=== PATIENT | female | born 1960 | race Caucasian/White ===

== ENCOUNTER → 2019-01-20 08:46 | Outpatient (CLI) | payer BC, SELFPAY ==
--- NOTE | 2019-01-20 08:48 | AS_ITS ---
Renal Arterial Duplex Indications: 405.91 Unspecified renovascular hypertension. IMPRESSIONS 1. Less than 60% stenosis involving the right renal artery 2. Less than 60% stenosis involving the left renal artery 3. Cholelithiasis. History: Risk factors: Hypertension. Diabetes mellitus. Complete renal arterial duplex. Duplex scan and Doppler flow study including spectral analysis, color and rubin scale imaging. Height: Height: 160cm. Height: 63in. Weight: Weight: 88.5kg. Weight: 194.6lb. Body mass index: BMI: 34.5kg/m^2. Body surface area: BSA: 2.02m^2. Location: Vascular laboratory. Patient status: Outpatient. Tables: Arterial flow: + +--------+--------+ Location V sys V ed + +--------+--------+ Right renal - proximal 244cm/s 44.8cm/s + +--------+--------+ Right renal - mid 171cm/s 52.1cm/s + +--------+--------+ Right renal - distal 198cm/s 52.1cm/s + +--------+--------+ Left renal - proximal 175cm/s 44.4cm/s + +--------+--------+ Left renal - mid 184cm/s 24.7cm/s + +--------+--------+ Left renal - distal 122cm/s 33cm/s + +--------+--------+ Right renal-origin 235cm/s 48.9cm/s + +--------+--------+ Left renal-origin 171cm/s 43.3cm/s + +--------+--------+ Aorta-prox 96.4cm/s -------- + +--------+--------+ Renal anatomy: + +-----+-----+ Left Right + +-----+-----+ Long axis 9.6cm 9.4cm + +-----+-----+ Short axis 7.4cm 6.4cm + +-----+-----+ Cortical thickness 2cm 1.5cm + +-----+-----+ Velocity ratios: + +-----+ V sys + +-----+ Right renal/aortic 2.5 + +-----+ Left renal/aortic 1.9 + +-----+ (Report amended ) Electronically signed by: Theodore Gerardo [id number]
== END ==
PROVIDERS: PCP Emergency Medicine; Visit Provider Emergency Medicine
DX: I70.1 Atherosclerosis of renal artery (principal)
CPT/HCPCS: 93976

== ENCOUNTER → 2019-02-24 07:58 | Outpatient (CLI) | payer BC, SELFPAY ==
[2019-02-24 08:00] LABS: MANUAL DIFFERENTIAL MANUAL DIFFERENTIAL (MANUAL DIFF)
[2019-02-24 08:39] LABS: Basophils # 0.1 K/mm3 (0-0.2); Basophils % 0.8 % (0.1-2.0); Eosinophils # 0.1 K/mm3 (0.0-0.4); Eosinophils % 1.3 % (0.1-12.0); Hemoglobin 11.7 g/dL (12.2-16.2); Lymphocytes # 2.3 K/mm3 (0.7-4.5); Lymphocytes % 32.2 % (10-50); Mean Corpuscular HGB Conc 31.6 g/dL (31.8-35.4); Mean Corpuscular Hemoglobin 27.4 pg (27.0-31.2); Mean Corpuscular Volume 86.8 fl (81-99); Monocytes # 0.2 K/mm3 (0.1-1.0); Monocytes % 3.2 % (1.7-9.3); Neutrophils # 4.5 K/mm3 (1.8-7.8); Neutrophils % 62.5 % (37.0-80.0); Platelet Count 323 K/mm3 (142-424); Red Blood Count 4.27 M/mm3 (4.20-5.40); Red Cell Distribution Width 13.8 % (11.5-17.5); White Blood Count 7.3 K/mm3 (4.8-10.8)
[2019-02-24 08:52] LABS: Alanine Aminotransferase 17 U/L (12-78); Albumin Level 3.3 gm/dL (3.4-5.0); Albumin/Globulin Ratio 0.9 (1.1-1.8); Alkaline Phosphatase 83 U/L (46-116); Anion Gap 7.4 mEq/L (5-15); Aspartate Amino Transferase 7 U/L (15-37); Bilirubin,Total 0.4 mg/dL (0.2-1.0); Blood Urea Nitrogen 11 mg/dL (7-18); Carbon Dioxide 33 mmol/L (21.0-32.0); Chloride 93 mmol/L (98-107); Chol/HDL Ratio 6.3 (1-3.5); Cholesterol 344 mg/dL (140-200); Creatinine,Serum 0.99 mg/dL (0.55-1.02); Estimated Glomerular Filt Rate 57 ml/min (>60); GFR (African American) 69 ML/MIN (>60); Globulin 3.8 gm/dl (1.3-3.2); Glucose 96 mg/dL (74-106); HDL Cholesterol 55 mg/dL (29-89); LDL Cholesterol 255 mg/dL (0-130); Potassium 4.4 mmoL/L (3.5-5.1); Sodium 129 mmol/L (136-145); T4 (Thyroxine) 10.8 ug/dl (4.7-13.3); Thyroid Stimulating Hormone 3.43 uIU/ml (0.358-3.740); Total Protein,Serum 7.1 gm/dL (6.4-8.2); Triglycerides 169 mg/dL (30-200); VLDL Cholesterol 34 mg/dL (0-40)
--- NOTE | 2019-02-24 09:01 | CT_ITS ---
CT angio abdomen CLINICAL INDICATION: ITS.REASON: hypertension, renal artery stenosis ORDERING PHYSICIAN: Anshul Pham MD PATIENT AGE: 58 years COMPARISON: None TECHNIQUE: Axial images obtained with sagittal and coronal reformats. All CT scans at the facility use one or more dose reduction, viz: automated exposure control, ma/kV adjustment per patient size (including targeted exams where dose is matched to indication, i.e. head), or iterative reconstruction technique. PROCEDURE: Oral Contrast: None IV Contrast: Yes . FINDINGS: Lower thorax: No acute finding There are calcifications involving the abdominal aorta and pelvic arteries without definite stenosis. However it should be noted the entire pelvis is not in the field of view. There is small calcification near the ostium of the right renal artery however there is no definite stenosis of the solitary right renal artery. There is a solitary left renal artery also without stenosis. The length of the left and right kidneys are 9.9 and 9.8 cm respectively. The celiac, SMA and MICHAEL arteries opacify normally. Liver is normal. There is layering of soft tissue density in the dependent portion of the gallbladder without pericholecystic fluid or biliary dilatation. Pancreas, spleen, and adrenal glands are normal. Renal nephrograms bilaterally are normal. There is incomplete fluid distention of the stomach for adequate evaluation. Visualized portions of the bowel appear normal. Appendix appears normal. There is no acute osseous process. Impression: Calcific atherosclerotic vascular disease without areas of stenosis. Specifically no renal artery stenosis. There are solitary renal arteries bilaterally. There is no evidence of renal size significant asymmetry. Gallbladder sludge or noncalcified gallstones without acute inflammation.
[2019-02-24 11:21] LABS: Hemoglobin A1C 6.2 % (0.0-7.0)
[2019-02-24 11:34] LABS: Eosinophils % 3 % (0-3); Lymphocytes % 27 % (10-50); Monocytes % 2 % (2-9); Neutrophils % 68 % (42-76); Total Cells Counted 100
[2019-02-24 11:35] LABS: RBC Morphology Normal
[2019-02-24 11:37] LABS: Platelet Estimate Normal
[2019-02-25 15:04] LABS: Vitamin D 25 Hydroxy 24.2 ng/mL (30.0-100.0)
[2019-02-25 15:05] LABS: Microalbumin, Urine 3.3 ug/mL (Not Estab.)
== END ==
PROVIDERS: Visit Provider Emergency Medicine
DX: E11.9 Type 2 diabetes mellitus without complications (principal); F41.9 Anxiety disorder, unspecified; I10 Essential (primary) hypertension; I70.1 Atherosclerosis of renal artery; Z79.84 Long term (current) use of oral hypoglycemic drugs
CPT/HCPCS: 74175; 80053; 80061; 82043; 82652; 83036; 84436; 84443; 85007; 85014; 85018; 85048; 85049; Q9967

== ENCOUNTER → 2019-11-01 08:33 | Outpatient (CLI) | payer BC, SELFPAY ==
--- NOTE | 2019-11-01 08:33 | MM_ITS ---
PROCEDURE: MM DIG SCREENING MAMM BI W/CAD Digital Breast Tomosynthesis Included CLINICAL INDICATION: screening COMPARISON: DIAGNOSTIC MAMMOGRAPHY (ANALOG) from 09/06/2001 DIAGNOSTIC MAMMOGRAPHY (ANALOG) from 03/09/2002 DMSB DIG MAMM-SCREEN CELSA from 10/25/2013 TECHNIQUE: Standard CC and MLO images and 3D Tomosynthesis was obtained. R2 CAD reviewed. FINDINGS: The breasts are of average density. A metallic posterior tactic biopsy clip is seen in retroareolar right breast. Numerous benign appearing nodules most consistent with lymph nodes project over both pectoral muscles and in the prepectoral regions of both breasts. Benign appearing calcifications are also seen bilaterally. Graft there is a bilobulated 5.5 millimeter nodular density in the medial right breast on the CC views perhaps best depicted on the tomosynthesis images . This is not confirmed with certainty on MLO views or an additional CC view. There is no other new findings suspicious for malignancy. IMPRESSION: BI-RAD Category: 0 Need Additional Imaging Evaluation Additional cone compression view of asymmetrical density in the medial right breast and ultrasound targeted to mammographic abnormality and 90 degree lateral to medial view right breast recommended. (A letter has been sent to the patient regarding results of the study.) Dictated by: Manuel Brody 11/01/2019 10:03 Electronically signed by Manuel Brody in [place] 11/01/2019 10:03
== END ==
PROVIDERS: PCP Emergency Medicine; Visit Provider Emergency Medicine
DX: Z12.31 Encounter for screening mammogram for malignant neoplasm of breast (principal)
CPT/HCPCS: 77063; 77067

== ENCOUNTER → 2019-11-10 14:35 | Outpatient (CLI) | payer BC, SELFPAY ==
--- NOTE | 2019-11-10 14:35 | US_ITS ---
PROCEDURE: MM DIG MAMM DX UNILAT RT CAD Digital Breast Tomosynthesis Included CLINICAL INDICATION: abnormal mamm Follow-up abnormal mammogram COMPARISON: DIAGNOSTIC MAMMOGRAPHY (ANALOG) from 03/09/2002 DMSB DIG MAMM-SCREEN CELSA from 10/25/2013 MM DIG SCREENING MAMM BI W/CAD from 11/01/2019 US BREAST RT COMPLETE from 11/10/2019 TECHNIQUE: Standard CC and MLO images and 3D Tomosynthesis was obtained. R2 CAD reviewed. Right breast ultrasound FINDINGS: Spot compression views right mL view and right breast ultrasound is performed. There is some faint nodularity noted in the medial aspect of the right breast. Margins are not well circumscribed and this may only be due to some asymmetric fibroglandular tissue. Benign-appearing calcifications are noted also in the medial aspect of right breast. There is some minimal nodularity noted in the inferior aspect of the right breast on the mL view nonspecific Right breast ultrasound: No cystic or solid lesion evident. No sonographic correlate that would correspond to the nodular opacity in the medial aspect of the right breast. IMPRESSION: Probably benign findings. Recommend six-month mammographic and sonographic follow-up BI-RAD Category: 3 Probably Benign Finding Short Term Follow-up FOLLOW-UP: 6M 6Month Follow-up (A letter has been sent to the patient regarding results of the study.) Dictated by: Theodore Gerardo MD 11/23/2019 09:32 Electronically signed by Theodore Gerardo MD in [facility] 11/23/2019 09:32
== END ==
PROVIDERS: PCP Emergency Medicine; Visit Provider Emergency Medicine
DX: R92.8 Other abnormal and inconclusive findings on diagnostic imaging of breast (principal)
CPT/HCPCS: 76641; 77061; 77065; G0279

== ENCOUNTER → 2020-02-17 08:37 | Outpatient (CLI) | payer BC, SELFPAY ==
[2020-02-17 08:54] LABS: Basophils # 0.1 K/mm3 (0-0.2); Basophils % 0.7 % (0.1-2.0); Eosinophils # 0.1 K/mm3 (0.0-0.4); Eosinophils % 1.6 % (0.1-12.0); Hematocrit 36.6 % (37.0-47.0); Hemoglobin 12.5 g/dL (12.2-16.2); Lymphocytes # 2.2 K/mm3 (0.7-4.5); Lymphocytes % 27.6 % (10-50); Mean Corpuscular HGB Conc 34.1 g/dL (31.8-35.4); Mean Corpuscular Hemoglobin 30.3 pg (27.0-31.2); Mean Corpuscular Volume 88.7 fl (81-99); Mean Platelet Volume 7.6 fl (7.4-10.4); Monocytes # 0.3 K/mm3 (0.1-1.0); Monocytes % 3.2 % (1.7-9.3); Neutrophils # 5.2 K/mm3 (1.8-7.8); Neutrophils % 66.9 % (37.0-80.0); Platelet Count 301 K/mm3 (142-424); Red Blood Count 4.13 M/mm3 (4.20-5.40); Red Cell Distribution Width 14.2 % (11.5-17.5); White Blood Count 7.8 K/mm3 (4.8-10.8)
[2020-02-17 09:25] LABS: Chloride 92 mmol/L (98-107); Sodium 132 mmol/L (136-145)
[2020-02-17 09:27] LABS: Alanine Aminotransferase 16 U/L (12-78); Aspartate Amino Transferase 26 U/L (14-36); Blood Urea Nitrogen 21 mg/dl (7-17); Estimated Glomerular Filt Rate 56 ml/min (>60); GFR (African American) 68 ML/MIN (>60)
[2020-02-17 09:28] LABS: Albumin/Globulin Ratio 1.3 (1.1-1.8); Alkaline Phosphatase 62 U/L (38-126); Bilirubin,Total 0.6 mg/dl (0.2-1.3); Calcium 9.4 mg/dl (8.4-10.2); Carbon Dioxide 31 mmol/L (22.0-30.0); Globulin 3.1 g/dL (1.3-3.2); Glucose 98 mg/dl (74-100); Total Protein,Serum 7.1 g/dl (6.3-8.2); Triglycerides 180 mg/dl (30-150); VLDL Cholesterol 36 mg/dL (0-40)
[2020-02-17 09:39] LABS: Direct LDL Cholesterol 243.26 mg/dL (100-129)
[2020-02-17 09:58] LABS: Thyroid Stimulating Hormone 2.15 uIU/mL (0.465-4.68)
[2020-02-17 10:36] LABS: Anion Gap 13.6 mEq/L (5-15); Potassium 4.6 mmoL/L (3.5-5.1)
[2020-02-17 10:39] LABS: HDL Cholesterol 67 mg/dl (40-60)
[2020-02-17 10:48] LABS: Chol/HDL Ratio 5.3 (1-3.5); Cholesterol 358 mg/dl (140-200)
[2020-02-17 11:56] LABS: Hemoglobin A1C 5.8 % (4.0-6.0)
[2020-02-23 12:32] LABS: 1,25 Dihydroxy Vitamin D 22 pg/mL (.); 1,25-Dihydroxy, Vitamin D-2 <10 pg/mL (.); 1,25-Dihydroxy, Vitamin D-3 22 pg/mL (.)
== END ==
PROVIDERS: Visit Provider Emergency Medicine
DX: E11.9 Type 2 diabetes mellitus without complications (principal); Z79.84 Long term (current) use of oral hypoglycemic drugs
CPT/HCPCS: 36415; 80053; 80061; 82652; 83036; 84436; 84443; 85025

== ENCOUNTER → 2020-02-22 14:34 | Outpatient (CLI) | payer BC, SELFPAY ==
[2020-02-22 14:56] LABS: Creatinine,Urine Random 72 mg/dL (Not Estab.)
== END ==
PROVIDERS: Visit Provider Emergency Medicine
DX: E11.9 Type 2 diabetes mellitus without complications (principal); Z79.84 Long term (current) use of oral hypoglycemic drugs
CPT/HCPCS: 82570

== ENCOUNTER → 2020-05-22 13:47 | Outpatient (CLI) | payer BC, SELFPAY ==
--- NOTE | 2020-05-22 13:48 | MM_ITS ---
PROCEDURE: MM DIG MAMM DX UNILAT RT CAD Digital Breast Tomosynthesis Included CLINICAL INDICATION: 6 mth f/u due May 2020 Evaluation of possible asymmetric glandular elements COMPARISON: MG DMSB DIG MAMM-SCREEN CELSA from 10/25/2013 MG MM DIG SCREENING MAMM BI W/CAD from 11/01/2019 MG MM DIG MAMM DX UNILAT RT CAD from 11/10/2019 TECHNIQUE: Standard CC and MLO images and 3D Tomosynthesis was obtained. R2 CAD reviewed. FINDINGS: The questionable area of increased density on the recent mammogram 11/01/2019 and 11/10/2019 is less prominent on the current study and has the appearance of minimal asymmetric glandular elements on a background of primarily fatty breast parenchyma. Review of kriill images shows no suspicious abnormality. Again noted is a biopsy clip outer quadrant . IMPRESSION: Essentially negative six-month follow-up exam the questionable asymmetric glandular elements are somewhat less prominent than on the previous study and there is no suspicious lesions seen BI-RAD Category: 2 Benign Finding(s) FOLLOW-UP: 6M 6Month Follow-up to return to normal yearly screening schedule (A letter has been sent to the patient regarding results of the study.) Dictated by: Dr. Jc Krishnamurthy MD 05/30/2020 08:31 Dr. Jc Krishnamurthy MD in [place] 05/30/2020 08:31
--- NOTE | 2020-05-22 13:48 | US_ITS ---
PROCEDURE: US BREAST RT COMPLETE CLINICAL INDICATION: 6 mth f/u due may 2020 COMPARISON: US US BREAST RT COMPLETE from 11/10/2019 FINDINGS: Scanning in the circumareolar region shows normal appearing rather homogeneous echogenicity most consistent with fatty type breast parenchyma. There is no suspicious cystic or solid lesions seen. There are 2 small normal appearing nodes in the axilla. IMPRESSION: Unremarkable six-month follow-up ultrasound and recommend the patient continue with yearly screening mammography Dictated by: Dr. Jc Krishnamurthy MD 05/30/2020 08:34 Dr. Jc Krishnamurthy MD in [place] 05/30/2020 08:34
== END ==
PROVIDERS: PCP Emergency Medicine; Visit Provider Emergency Medicine
DX: R92.8 Other abnormal and inconclusive findings on diagnostic imaging of breast (principal)
CPT/HCPCS: 76641; 77061; 77065; G0279

== ENCOUNTER → 2020-07-03 12:32 | Outpatient (CLI) | payer BC, SELFPAY ==
--- NOTE | 2020-07-03 12:33 | CA_ITS ---
APPROVED REPORT Fishing Worker: DYLAN Laterality: Bilateral Indications: dizziness, HTN, hyperlipidemia, vertigo, diabetes Risk Factors Hypertension: Hyperlipidemia Diabetes Doppler Spectral Velocity Analysis ECA (R) 126.20/15.40 cm/s ECA (L) 132.90/21.20 cm/s dICA (R) 83.10/26.20 cm/s dICA (L) 88.00/32.10 cm/s Tj (R) 68.70/16.10 cm/s Tj (L) 88.00/32.70 cm/s pICA (R) 59.70/18.00 cm/s pICA (L) 93.70/31.50 cm/s dCCA (R) 70.60/17.60 cm/s dCCA (L) 105.40/25.70 cm/s pCCA (R) 65.20/11.80 cm/s pCCA (L) 108.00/33.40 cm/s Vert (R) 60.60/17.20 cm/s Vert (L) 50.30/15.00 cm/s ICA/CCA 1.18 ICA/CCA 0.89 Findings Duplex evaluation demonstrates stenosis of the right proximal internal carotid artery <20% with PSV <140 cm/sec, EDV <100 cm/sec, and IC/CC Ratio <4.0.Duplex evaluation demonstrates stenosis of the left proximal internal carotid artery <20% with PSV <140 cm/sec, EDV <100 cm/sec, and IC/CC Ratio <4.0. Conclusion Duplex evaluation demonstrates stenosis of the right proximal internal carotid artery <20% with PSV <140 cm/sec, EDV <100 cm/sec, and IC/CC Ratio <4.0.Duplex evaluation demonstrates stenosis of the left proximal internal carotid artery <20% with PSV <140 cm/sec, EDV <100 cm/sec, and IC/CC Ratio <4.0. Electronically signed by : Theodore Gerardo MD 07/03/2020 18:09:45
== END ==
PROVIDERS: PCP Emergency Medicine; Visit Provider Emergency Medicine
DX: R42 Dizziness and giddiness (principal)
CPT/HCPCS: 93880

== ENCOUNTER → 2021-02-11 13:58 | Outpatient (CLI) | payer BC, SELFPAY ==
[2021-02-11 14:15] LABS: Alanine Aminotransferase 13 U/L (12-78); Albumin Level 4.5 g/dl (3.5-5.0); Albumin/Globulin Ratio 1.6 (1.1-1.8); Alkaline Phosphatase 98 U/L (38-126); Anion Gap 10.8 mEq/L (5-15); Aspartate Amino Transferase 27 U/L (14-36); Bilirubin,Total 0.9 mg/dl (0.2-1.3); Blood Urea Nitrogen 14 mg/dl (7-17); Calcium 9.9 mg/dl (8.4-10.2); Carbon Dioxide 32 mmol/L (22.0-30.0); Chloride 95 mmol/L (98-107); Cholesterol 295 mg/dl (140-200); Estimated Glomerular Filt Rate 50 ml/min (>60); GFR (African American) 61 ML/MIN (>60); Globulin 2.8 g/dL (1.3-3.2); Glucose 107 mg/dl (74-100); Potassium 4.8 mmoL/L (3.5-5.1); Sodium 133 mmol/L (136-145); Total Protein,Serum 7.3 g/dl (6.3-8.2); Triglycerides 101 mg/dl (30-150); VLDL Cholesterol 20 mg/dL (0-40)
[2021-02-11 14:26] LABS: Direct LDL Cholesterol 157.44 mg/dL (100-129)
[2021-02-11 14:27] LABS: Chol/HDL Ratio 2.6 (1-3.5); HDL Cholesterol 115 mg/dl (40-60)
[2021-02-11 14:28] LABS: Hemoglobin A1C 5.7 % (4.0-6.0)
[2021-02-11 14:29] LABS: Basophils # 0.1 K/mm3 (0-0.2); Basophils % 0.9 % (0.1-2.0); Eosinophils # 0.1 K/mm3 (0.0-0.4); Eosinophils % 1.7 % (0.1-12.0); Hematocrit 37.5 % (37.0-47.0); Hemoglobin 12.5 g/dL (12.2-16.2); Lymphocytes # 2.3 K/mm3 (0.7-4.5); Lymphocytes % 33.4 % (10-50); Mean Corpuscular HGB Conc 33.2 g/dL (31.8-35.4); Mean Corpuscular Hemoglobin 29.2 pg (27.0-31.2); Mean Corpuscular Volume 87.9 fl (81-99); Mean Platelet Volume 8.6 fl (7.4-10.4); Monocytes # 0.3 K/mm3 (0.1-1.0); Monocytes % 4.5 % (1.7-9.3); Neutrophils # 4.1 K/mm3 (1.8-7.8); Neutrophils % 59.4 % (37.0-80.0); Platelet Count 365 K/mm3 (142-424); Red Blood Count 4.27 M/mm3 (4.20-5.40); Red Cell Distribution Width 13.7 % (11.5-17.5)
[2021-02-11 14:32] LABS: 25-OH Vitamin D, Total 24.2 ng/mL (30-100); T4 (Thyroxine) 13.3 ug/dl (5.53-11.0)
[2021-02-11 14:46] LABS: Thyroid Stimulating Hormone 2.84 uIU/mL (0.465-4.68)
== END ==
PROVIDERS: Visit Provider Emergency Medicine
DX: E11.9 Type 2 diabetes mellitus without complications (principal); E78.5 Hyperlipidemia, unspecified; I10 Essential (primary) hypertension; E55.9 Vitamin D deficiency, unspecified; Z79.84 Long term (current) use of oral hypoglycemic drugs
CPT/HCPCS: 80053; 80061; 82306; 83036; 84436; 84443; 85025

== ENCOUNTER → 2022-01-31 13:12 | Outpatient (CLI) | payer BC, SELFPAY ==
[2022-01-31 12:56] LABS: Basophils # 0.1 K/mm3 (0-0.2); Basophils % 1.6 % (0.1-2.0); Eosinophils # 0.2 K/mm3 (0.0-0.4); Eosinophils % 1.8 % (0.1-12.0); Hematocrit 35.6 % (37.0-47.0); Hemoglobin 11.1 g/dL (12.2-16.2); Lymphocytes # 2.3 K/mm3 (0.7-4.5); Lymphocytes % 25.7 % (10-50); Mean Corpuscular HGB Conc 31.2 g/dL (31.8-35.4); Mean Corpuscular Hemoglobin 27.1 pg (27.0-31.2); Mean Corpuscular Volume 86.9 fl (81-99); Mean Platelet Volume 8.4 fl (7.4-10.4); Monocytes # 0.4 K/mm3 (0.1-1.0); Monocytes % 4.3 % (1.7-9.3); Neutrophils # 5.9 K/mm3 (1.8-7.8); Neutrophils % 66.6 % (37.0-80.0); Platelet Count 378 K/mm3 (142-424); Red Cell Distribution Width 16.1 % (11.5-17.5); White Blood Count 8.9 K/mm3 (4.8-10.8)
[2022-01-31 13:06] LABS: Chloride 92 mmol/L (98-107); Potassium 4.7 mmoL/L (3.5-5.1); Sodium 129 mmol/L (136-145)
[2022-01-31 13:09] LABS: Anion Gap 13.7 mEq/L (5-15); Blood Urea Nitrogen 12 mg/dl (7-17); Carbon Dioxide 28 mmol/L (22.0-30.0); Estimated Glomerular Filt Rate 56 ml/min (>60); GFR (African American) 68 ML/MIN (>60)
[2022-01-31 13:10] LABS: Calcium 9.6 mg/dl (8.4-10.2); Chol/HDL Ratio 2.8 (1-3.5); Cholesterol 307 mg/dl (140-200); Glucose 100 mg/dl (74-100); HDL Cholesterol 109 mg/dl (40-60); Triglycerides 83 mg/dl (30-150); VLDL Cholesterol 17 mg/dL (0-40)
[2022-01-31 13:26] LABS: 25-OH Vitamin D, Total 34.1 ng/mL (30-100)
[2022-01-31 13:27] LABS: Direct LDL Cholesterol 171.69 mg/dL (100-129)
[2022-01-31 13:33] LABS: Free T4 (Free Thyroxine) 1.46 ng/dl (0.78-2.19)
[2022-01-31 13:46] LABS: Thyroid Stimulating Hormone 1.64 uIU/mL (0.465-4.68)
== END ==
PROVIDERS: PCP Emergency Medicine; Visit Provider Emergency Medicine
DX: E11.9 Type 2 diabetes mellitus without complications (principal); E55.9 Vitamin D deficiency, unspecified; Z79.84 Long term (current) use of oral hypoglycemic drugs
CPT/HCPCS: 80048; 80061; 82306; 84439; 84443; 85025

== ENCOUNTER → 2022-05-02 15:54 | Outpatient (CLI) | payer BC, SELFPAY ==
[2022-05-02 15:04] LABS: Creatinine,Urine Random 27 mg/dL (Not Estab.); Microalbumin < 6.000 mg/L (0-16.7)
== END ==
PROVIDERS: PCP Emergency Medicine; Visit Provider Emergency Medicine
DX: E11.9 Type 2 diabetes mellitus without complications (principal); Z79.84 Long term (current) use of oral hypoglycemic drugs
CPT/HCPCS: 82043; 82570

== ENCOUNTER → 2022-08-15 08:12 | Outpatient (CLI) | payer BC, SELFPAY ==
--- NOTE | 2022-08-15 08:12 | US_ITS ---
FINAL REPORT CLINICAL HISTORY: gallstones FINDINGS: Sonographic images of the right upper quadrant were obtained. The pancreas is partially obscured. The liver has increased echogenicity consistent with fatty infiltration. There are numerous gallstones within the gallbladder. There is no evidence of biliary ductal dilatation.The common duct measures 2 mm. Limited images of the right kidney are unremarkable. IMPRESSION: Cholelithiasis. Fatty liver. Reviewed, Interpreted and Dictated by Colin Jamil III, MD Transcribed by Blanca Rose Authenticated and . [facility]
--- NOTE | 2022-08-15 08:12 | US_ITS ---
FINAL REPORT CLINICAL HISTORY: .low back pain FINDINGS: Transvaginal sonographic images of the pelvis were obtained. The uterus measures 5.1 x 3.7 x 2.5 cm. The endometrium measures 3, which is within normal limits. There is a small uterine fibroid measuring 5 mm. The right ovary measures 1.9 cm in length and left ovary measures 2.1 cm in length. Normal blood flow seen to the ovaries. There is no evidence of free fluid. IMPRESSION: Small uterine fibroid, otherwise unremarkable exam. Reviewed, Interpreted and Dictated by Colin Jamil III, MD Transcribed by Blanca Rose Authenticated and [facility]
== END ==
PROVIDERS: PCP Emergency Medicine; Visit Provider Emergency Medicine
DX: K80.20 Calculus of gallbladder without cholecystitis without obstruction (principal); R10.2 Pelvic and perineal pain; M54.50 Low back pain, unspecified
CPT/HCPCS: 76705; 76830

== ENCOUNTER → 2022-08-21 09:44 | Outpatient (CLI) | payer BC, SELFPAY ==
[2022-08-21 10:13] LABS: Basophils # 0.1 K/mm3 (0-0.2); Basophils % 0.8 % (0.1-2.0); Eosinophils # 0.2 K/mm3 (0.0-0.4); Eosinophils % 1.6 % (0.1-12.0); Hematocrit 32.4 % (37.0-47.0); Hemoglobin 10.2 g/dL (12.2-16.2); Lymphocytes # 2.7 K/mm3 (0.7-4.5); Lymphocytes % 25.5 % (10-50); Mean Corpuscular HGB Conc 31.4 g/dL (31.8-35.4); Mean Corpuscular Volume 82.9 fl (81-99); Mean Platelet Volume 7.4 fl (7.4-10.4); Monocytes # 0.4 K/mm3 (0.1-1.0); Monocytes % 3.7 % (1.7-9.3); Neutrophils # 7.1 K/mm3 (1.8-7.8); Neutrophils % 68.3 % (37.0-80.0); Platelet Count 353 K/mm3 (142-424); Red Blood Count 3.91 M/mm3 (4.20-5.40); Red Cell Distribution Width 16.2 % (11.5-17.5); White Blood Count 10.4 K/mm3 (4.8-10.8)
[2022-08-21 10:40] LABS: Chloride 97 mmol/L (98-107); Potassium 4.4 mmoL/L (3.5-5.1); Sodium 134 mmol/L (136-145)
[2022-08-21 10:43] LABS: Alanine Aminotransferase 18 U/L (12-78); Albumin Level 4.1 g/dl (3.5-5.0); Albumin/Globulin Ratio 1.5 (1.1-1.8); Alkaline Phosphatase 99 U/L (38-126); Anion Gap 12.4 mEq/L (5-15); Aspartate Amino Transferase 25 U/L (14-36); Bilirubin,Total 0.6 mg/dl (0.2-1.3); Blood Urea Nitrogen 21 mg/dl (7-17); Carbon Dioxide 29 mmol/L (22.0-30.0); Estimated Glomerular Filt Rate 50 ml/min (>60); GFR (African American) 61 ML/MIN (>60); Globulin 2.8 g/dL (1.3-3.2); Total Protein,Serum 6.9 g/dl (6.3-8.2)
[2022-08-21 10:44] LABS: Calcium 9.3 mg/dl (8.4-10.2); Glucose 110 mg/dl (74-100)
== END ==
PROVIDERS: PCP Emergency Medicine; Visit Provider Surgery
DX: Z01.812 Encounter for preprocedural laboratory examination (principal); K80.20 Calculus of gallbladder without cholecystitis without obstruction
CPT/HCPCS: 36415; 80053; 85025

== ENCOUNTER 2022-09-08 06:06 | Day surgery (SDC) | payer BC, SELFPAY ==
[2022-09-05 09:11] VITALS: BMI 38.0
[2022-09-08] VITALS (10 sets, daily range): BP systolic 110–148; BP diastolic 59–79; PULSE 61–71; RESP 16–18; TEMP 36.1–43; O2SAT 91–99
[2022-09-08 06:34] LABS: POC Glucose,Bedside 111 (70-110)
--- NOTE | 2022-09-08 07:20 | P.PN_ITS ---
[facility] Disclaimer: The information contained in this section may have been updated after the patient was seen, as this information can be updated by other users. Medical History Ankle fracture Anxiety Depression Gallstones GERD (gastroesophageal reflux disease) Hypertension Surgical History H/O breast biopsy H/O release of tendon History of ankle surgery Family History Other Breast cancer Family history of hypertension Family history of myocardial infarction Prostate cancer Social History Smoking Status: Former smoker alcohol intake: never substance use type: denies use current occupational status: retired Travel in the last 8 weeks: None household members: spouse housing: apartment [facility] Anesthesia Checklist Patient Identification Patient Identification: Arm Band Structural Data Admitted From: Home Planned Operative Procedure/s: Lap. palacios Consent for Planned Operative Procedure(s) Verified: Yes NPO Status Verified Time NPO: 00:00 Additional verifications Anesthesia Reactions: No Hx Blood Transfusions: No Blood Transfusion Reaction: No Airway Assessment C-Spine Mobility Assessed: Yes TMJ Mobility Assessed: Yes Dentition: Good Dentition Neurological Assessment Level of Consciousness: Awake Hx Seizures: No Numbness or tingling in extremities: No Anesthesia Plan Anesthesia Risk discussed: Yes Anesthesia Plan: Verified ASA Class: III Anesthesia Type: General
--- NOTE | 2022-09-08 09:01 | EXP.OP.NOTE ---
Date of procedure: 09/08/22 Pre-op Diagnosis:: Symptomatic gallstones Post-op Diagnosis:: Same Procedure performed:: Laparoscopic cholecystectomy Surgeon:: Colin Sosa MD OBJECT ORIENTED PROGRAMMER:: Jon Nguyen Anesthesia: GABRIELA Estimated blood loss (mL): 25 Clinical Note:: Patient presents for cholecystectomy. She is a pleasant 62-year-old female from [place] referred by Dr. Pham for gallbladder.? She states that for about 2 months she has had some right subcostal pain and discomfort she describes as a grumbling .? This does not seem to be related to eating.? Patient underwent gallbladder ultrasound which reveals cholelithiasis and fatty liver. She was seen as a surgical consultation in the office. Options were discussed with her. She wished to pursue cholecystectomy. Operative findings:: She had a somewhat distended gallbladder filled with numerous gallstones. Gallbladder was obscured with omental adhesions. Operative note:: Patient was taken to the operating room. She was given preoperative intravenous antibiotics. In the operating room she was placed in a supine position. General anesthesia was induced via endotracheal tube. Abdomen was prepped and draped in the standard surgical fashion. Subumbilical incision was made and while performing abdominal wall lift Veress needle was inserted. CO2 pneumoperitoneum was achieved to 15 mmHg. 11 mm optical trocar was inserted at the umbilicus. She was positioned in reverse Trendelenburg and left side down. A couple 5 mm trocars were inserted in the right upper abdomen. 10 mm trocar was inserted in the epigastrium. Liver was elevated. Gallbladder was identified. It was mostly obscured with omental adhesions. It was grasped retracted anteriorly at the only visible site of the gallbladder serosa. Omental adhesions were then taken down bluntly. Infundibulum/Pizarro's pouch of the gallbladder was retracted anterior laterally. Blunt dissection was carried out the neck of the gallbladder bluntly incising the visceral peritoneum. Cystic duct and cystic artery were identified. Cystic artery was somewhat looped over the top of the cystic duct. Cystic duct was isolated, multiply clipped, and sharply divided. Cystic artery was carefully coagulated with MANI ultrasonic harmonic patrizia and divided. Gallbladder was dissected free from the liver in a retrograde fashion using MANI ultrasonic harmonic patrizia. Gallbladder was placed within an Endo Catch retrieval device and removed from the peritoneal cavity via the umbilical trocar site which required some minor extension of the fascial incision for delivery. Gallbladder fossa was inspected for hemostasis which was assured. Some limited spot use of electrocautery was used on the gallbladder fossa to assure good hemostasis. The umbilical incision was partially closed using the laparoscopic needle close device with several valdovinos . However this did not appear to result in good fascial closure and attempt was made to close this laparoscopically with 0 Ethibond using the [place] suture passer which resulted in suboptimal closure. Therefore the fascia was ultimately closed with multiple interrupted 0 Ethibond sutures. This was done after removal of trocars and pneumoperitoneum evacuated. Local anesthetic was infiltrated. Skin incisions were closed with 4-0 Monocryl in a subcuticular fashion. Dermabond and dressings were applied. Condition: stable Disposition: PACU Complications:: None immediately apparent
--- NOTE | 2022-09-08 09:13 | P.PNANES_ITS ---
[facility] Anesthesia Record Part I Anesthesia Record I Intake, IV Amount: 1,200 Estimated blood loss (mL): 25 Urine output (mL): 0 Blood Pressure: 110/59 SaO2: 91 Pulse Rate: 68 Respiratory Rate: 17 Temperature: 99.8 F Patient is:: Drowsy and Oral/Nasal airway Stable to PACU at:: 09:11
--- NOTE | 2022-09-09 09:48 | EXP.ANES.II ---
[facility] Anesthesia Record Part II Anesthesia Record Part II Discharge Time: 09:21 Destination: [facility] PACU nurse assessment reviewed?: Yes Patient Condition:: Good Anesthesia Complications:: None Swallowing reflex intact?: Yes Cyanosis?: No Blood Pressure: 128/67 Pulse Rate: 68 Temperature: 98.2 F Mental Status: Alert & Oriented Pain level:: 0 Nausea and/or vomitting:: None Intake, IV Amount: 1,000
[2022-09-09 09:49] VITALS: BP 128/67; PULSE 68; TEMP 36.8
== END 2022-09-08 10:25 | disposition home or self-care (01) ==
PROVIDERS: PCP Emergency Medicine; Visit Provider Surgery
PROC: 0FT44ZZ Resection of Gallbladder, Percutaneous Endoscopic Approach (ICD-10-PCS; CPT 47562; principal; 2022-09-08 07:30)
DX: K80.10 Calculus of gallbladder with chronic cholecystitis without obstruction (principal); E11.9 Type 2 diabetes mellitus without complications; Z79.899 Other long term (current) drug therapy
CPT/HCPCS: 47562; 82962; 96374; J0131; J2405

== ENCOUNTER 2022-12-14 09:48 | Inpatient (IN) | payer BC, SELFPAY ==
[2022-12-14] VITALS (25 sets, daily range): BP systolic 63–146; BP diastolic 27–69; PULSE 68–80; RESP 13–22; TEMP 36.6–37; O2SAT 95–100; BMI 35.9; BMI 34.4
--- NOTE | 2022-12-14 10:21 | HMH.EDGENADL ---
Discharge Plan Disposition Patient Disposition: Admitted As Inpatient Clinical Impressions Clinical Impression: ADINA (acute kidney injury) Discharge ED Provider: Edmundo Krause General Adult HPI General Chief complaint: Nausea/Vomiting/Diarrhea Stated complaint: Diarrhea, vomiting Time Seen by Provider: 12/14/22 10:15 Mode of Arrival: Wheelchair Source of Information: Patient Limitations: No Limitations Description of Symptoms (Recalled from ER Triage Doc. by RN): pt to ed c/o n/v/d since thursday. pt reports abd tenderness from vomiting. pt denies any blood in her stool or emesis. pt reports cholecystectomy in sep. History of Present Illness HPI narrative: Patient is a 62-year-old female with a past medical history of recent cholecystectomy in September who presents with concern for nausea, vomiting, diarrhea. She says that since Thursday she has had a substantial amount of watery diarrhea. Says it does not have a foul smell. No recent use of antibiotics. She states that she is going to the bathroom numerous times a day and now has not had any urination in the last couple of days. She denies any hematochezia. She says that she does have some generalized abdominal pain. Denies any dysuria. No fever or chills. Related Data Home Medications Medication Instructions Recorded Confirmed amlodipine 2.5 mg tablet 2.5 mg PO DAILY High blood pressure 12/14/22 12/14/22 aripiprazole 5 mg tablet 5 mg PO DAILY Mood 12/14/22 12/14/22 bupropion HCl 75 mg tablet 75 mg PO AM Mood 12/14/22 12/14/22 enalapril maleate 20 mg tablet 20 mg PO DAILY High blood pressure 12/14/22 12/14/22 ezetimibe 10 mg tablet 10 mg PO DAILY Cholesterol 12/14/22 12/14/22 hydrochlorothiazide 12.5 mg tablet 12.5 mg PO DAILY Fluid 12/14/22 12/14/22 niacin 500 mg tablet 500 mg PO BID Supplement 12/14/22 12/14/22 polyethylene glycol 3350 17 17 g PO DAILY Constipation 12/14/22 12/14/22 gram/dose oral powder propranolol 60 mg capsule,24 60 mg PO DAILY High blood pressure 12/14/22 12/14/22 hr,extended release semaglutide 0.25 mg or 0.5 mg (2 0.5 mg SQ WEEKLY Diabetes 12/14/22 12/14/22 mg/1.5 mL) subcutaneous pen injector ([employer]) vilazodone 10 mg tablet 10 mg PO AM Mood 12/14/22 12/14/22 vilazodone 20 mg tablet 20 mg PO AM Mood 12/14/22 12/14/22 Allergies Allergy/AdvReac Type Severity Reaction Status Date / Time ampicillin Allergy Mild Hives Verified 10/31/22 08:39 ergotamine Allergy Mild hiv Verified 10/31/22 08:39 Ooqfbht-[id number]-ZyJ Reductase Allergy Mild Cramping Verified 10/31/22 08:39 Inhibitor of the [Dqubjgq-Gkr-Yfz Reductase Muscles Inhibitor] sumatriptan [From Imitrex] Allergy Mild Hives Verified 10/31/22 08:39 topiramate [From Topamax] Allergy Mild Hives Verified 10/31/22 08:39 fluconazole [From Diflucan] Allergy Verified 10/31/22 08:39 PFS PFS Disclaimer: The information contained in this section may have been updated after the patient was seen, as this information can be updated by other users. Medical History Ankle fracture Anxiety BMI 36.0-36.9,adult Depression Gallstones GERD (gastroesophageal reflux disease) Hypertension Obsessive compulsive disorder Surgical History H/O breast biopsy H/O release of tendon History of ankle surgery History of laparoscopic cholecystectomy Family History Other Breast cancer Family history of hypertension Family history of myocardial infarction Prostate cancer Social History (Updated 12/14/22 @ 15:58 by Reyna John RN) Smoking Status: Former smoker alcohol intake: never substance use type: denies use current occupational status: retired Travel in the last 8 weeks: None household members: spouse housing: apartment ROS Obtained: Yes All systems reviewed & no additional complaints except as
[2022-12-14 10:40] LABS: Basophils % 0.5 % (0.1-2.0); Eosinophils % 0.6 % (0.1-12.0); Hematocrit 40.4 % (37.0-47.0); Lymphocytes # 1.5 K/mm3 (0.7-4.5); Lymphocytes % 20.5 % (10-50); Mean Corpuscular HGB Conc 32.1 g/dL (31.8-35.4); Mean Corpuscular Hemoglobin 26.3 pg (27.0-31.2); Mean Corpuscular Volume 81.9 fl (81-99); Mean Platelet Volume 7.3 fl (7.4-10.4); Monocytes # 0.5 K/mm3 (0.1-1.0); Monocytes % 6.5 % (1.7-9.3); Neutrophils # 5.3 K/mm3 (1.8-7.8); Neutrophils % 71.9 % (37.0-80.0); Platelet Count 383 K/mm3 (142-424); Red Blood Count 4.93 M/mm3 (4.20-5.40); Red Cell Distribution Width 16.2 % (11.5-17.5); White Blood Count 7.4 K/mm3 (4.8-10.8)
[2022-12-14 10:43] LABS: Lipase 88 U/L (23-300)
[2022-12-14 10:44] LABS: Alanine Aminotransferase 38 U/L (12-78); Albumin Level 4.7 g/dl (3.5-5.0); Albumin/Globulin Ratio 1.3 (1.1-1.8); Alkaline Phosphatase 108 U/L (38-126); Anion Gap 27.8 mEq/L (5-15); Aspartate Amino Transferase 50 U/L (14-36); Bilirubin,Total 0.7 mg/dl (0.2-1.3); Blood Urea Nitrogen 38 mg/dl (7-17); Calcium 9.3 mg/dl (8.4-10.2); Carbon Dioxide 18 mmol/L (22.0-30.0); Chloride 85 mmol/L (98-107); Creatinine Clearance Estimated 16 mL/min (50-200); Estimated Glomerular Filt Rate 9 ml/min (>60); GFR (African American) 10 ML/MIN (>60); Globulin 3.7 g/dL (1.3-3.2); Glucose 117 mg/dl (74-100); Sodium 128 mmol/L (136-145); Total Protein,Serum 8.4 g/dl (6.3-8.2)
[2022-12-14 10:57] LABS: Potassium 2.8 mmoL/L (3.5-5.1)
--- NOTE | 2022-12-14 10:59 | PC.NURSE ---
rounded on pt no complaints at this time, at bedside
[2022-12-14 11:28] LABS: Coronavirus 19, PCR Not Detected (NotDetected); Influenza A, PCR Not Detected (NotDetected); Influenza B, PCR Not Detected (NotDetected)
[2022-12-14 11:36] LABS: Lactic Acid 1.1 mmol/L (0.7-2.1)
--- NOTE | 2022-12-14 11:43 | PC.NURSE ---
checked on pt nurse was at bedside talking with pt and family, at bedside
--- NOTE | 2022-12-14 12:57 | PC.NURSE ---
checked on pt gave her a water and a cup of coffee, at bs
--- NOTE | 2022-12-14 13:15 | PC.NURSE ---
pt c/o of right arm hurting, IV stopped, assessed, Iv infiltrated during k+ infusing, pharmacy notified, warm compresses recommended. Warm compresses applied, new IV started in left AC. aware
--- NOTE | 2022-12-14 13:19 | PC.NURSE ---
Report received from KEDAR Castañeda at bedside
--- NOTE | 2022-12-14 14:01 | PC.NURSE ---
rounded on pt no complaints at this time, at bs
[2022-12-14 14:03] LABS: Anion Gap 20.9 mEq/L (5-15); Blood Urea Nitrogen 36 mg/dl (7-17); Calcium 8.1 mg/dl (8.4-10.2); Carbon Dioxide 18 mmol/L (22.0-30.0); Chloride 92 mmol/L (98-107); Creatinine Clearance Estimated 19 mL/min (50-200); Estimated Glomerular Filt Rate 10 ml/min (>60); GFR (African American) 12 ML/MIN (>60); Glucose 90 mg/dl (74-100); Sodium 128 mmol/L (136-145)
[2022-12-14 14:05] LABS: Potassium 2.9 mmoL/L (3.5-5.1)
--- NOTE | 2022-12-14 14:40 | PC.NURSE ---
Patient resting with even, unlabored respirations. Equal chest rise and fall. Finishing 2nd KCL run. SPouse at bedside updated, and given water.
--- NOTE | 2022-12-14 14:44 | PC.NURSE ---
checked on pt no complaints at this time, at bedside
--- NOTE | 2022-12-14 14:48 | PC.NURSE ---
spoke with hospitalisxt for admission
--- NOTE | 2022-12-14 15:10 | PC.NURSE ---
Report called to [facility]
--- NOTE | 2022-12-14 15:27 | PC.NURSE ---
pt to med surg per wheelchair
--- NOTE | 2022-12-14 15:50 | EXP.HP ---
History of Present Illness *Admission Date: 12/14/22 *Reason for visit:: Diarrhea *History of present illness: This is a 62-year-old white female that presents to [facility] emergency department with concerns of nausea vomiting diarrhea since Thursday. She is accompanied by her Alexandre who assists with the history. Her past medical history significant for diabetes, hypertension, BMI 36 and depression. She reports that she was in her usual state of health until Thursday when she started experiencing nausea followed by several episodes of vomiting then diarrhea. She characterizes the diarrhea as watery and profuse with multiple episodes a day. She reports inability to keep p.o. down with identified fatigue and weakness over the last 24 hours. She denied unusual headaches, jaundice, hematemesis, melena or hematochezia. She reports some tenesmus but no crescendo abdominal pain. She denies dysuria, brown urine or flank pain. She has identified decreased urine output. She recalls no associated sick contacts or unusual food exposure. She reports no routine NSAID use [id number]. No history of chronic UTIs. No kidney stones. No recent antibiotics but does report a cholecystectomy in September 2022. In the ED her presenting blood pressure was 71/45 with stable heart rate and saturating appropriately on room air. Her CBC identified a normal white blood cell count and her electrolytes identified several derangements including hyponatremia hypokalemia bicarb 18 with elevated BUN and creatinine 5.1. Her lactic acid was normal and her lipase was normal. She reports that she is already feeling better with IV fluid resuscitation. Follow-up creatinine has decreased to 4.4. [facility] Medical History Ankle fracture Anxiety BMI 36.0-36.9,adult Depression Gallstones GERD (gastroesophageal reflux disease) Hypertension Obsessive compulsive disorder Surgical History H/O breast biopsy H/O release of tendon History of ankle surgery History of laparoscopic cholecystectomy Family History Other Breast cancer Family history of hypertension Family history of myocardial infarction Prostate cancer Social History (Updated 12/14/22 @ 19:29 by Ezekiel Mandujano MD) Smoking Status: Former smoker years smoked: 20 how long ago did patient quit smokin years alcohol intake: never substance use type: denies use current occupational status: retired Travel in the last 8 weeks: None household members: spouse housing: apartment Review of Systems Review of Systems Review of systems:: pertinent systems reviewed and negative unless documented below Constitutional Constitutional: Reports chills, Denies fever(s), Reports poor appetite, Reports lethargy and Reports weakness Eyes Eyes: Denies change in vision ENT Ears, Nose, Mouth, and Throat: Denies dysphagia *Cardiovascular Cardiovascular: Denies chest pain, Denies chest pain at rest, Denies dyspnea, Denies dyspnea on exertion, Reports lightheadedness and Denies palpitations *Respiratory Respiratory: Denies cough, Denies dyspnea, Denies dyspnea on exertion and Denies pain on inspiration *Gastrointestinal Gastrointestinal: Denies coffee ground emesis, Reports diarrhea, Denies dysphagia, Denies hematemesis, Denies melena, Reports nausea and Reports vomiting *Genitourinary Genitourinary: Denies dysuria *Musculoskeletal Musculoskeletal: Denies muscle cramps *Neurologic Neurologic: Reports weakness Endocrine Endocrine: Denies palpitations and Denies polyuria Hematologic/Lymphatic Hematologic/Lymphatic: Denies easy bruising Meds Home Medications and Allergies Home Medications Medication Instructions Recorded Confirmed Type amlodipine 2.5 mg tablet 2.5 mg PO DAILY High blood pressure 12/14/22 12/14/22 History
[2022-12-14 17:07] LABS: POC Glucose,Bedside 101 (70-110)
[2022-12-14 21:00] LABS: POC Glucose,Bedside 135 (70-110)
[2022-12-14 21:28] LABS: Chloride 89 mmol/L (98-107); Sodium 126 mmol/L (136-145)
[2022-12-14 21:31] LABS: Blood Urea Nitrogen 34 mg/dl (7-17); Creatinine Clearance Estimated 26 mL/min (50-200); Estimated Glomerular Filt Rate 16 ml/min (>60); GFR (African American) 19 ML/MIN (>60)
[2022-12-14 21:32] LABS: Anion Gap 16.4 mEq/L (5-15); Calcium 7.7 mg/dl (8.4-10.2); Carbon Dioxide 23 mmol/L (22.0-30.0); Glucose 120 mg/dl (74-100)
[2022-12-14 21:42] LABS: Potassium 2.4 mmoL/L (3.5-5.1)
--- NOTE | 2022-12-14 21:45 | PC.NURSE ---
. aware of patient's k from lab of 2.4.
[2022-12-15] VITALS (9 sets, daily range): BP systolic 92–116; BP diastolic 40–59; PULSE 60–84; RESP 16–18; TEMP 36.8–37.7; O2SAT 91–100; BMI 34.9
--- NOTE | 2022-12-15 | US_ITS ---
FINAL REPORT TECHNIQUE: Ultrasound images of the kidneys and bladder were obtained. CLINICAL HISTORY: ADINA FINDINGS: The right kidney measures 9.4 cm in length. It is normal in echogenicity. There is no hydronephrosis. The left kidney measures 8.8 cm in length. It is normal in echogenicity. There is no hydronephrosis. The urinary bladder is unremarkable. IMPRESSION: No hydronephrosis. Reviewed, Interpreted and Dictated by Colin Jamil III, MD Transcribed by Jeannie Cerrato Authenticated and [facility]
[2022-12-15 04:37] LABS: Microscopic, Urine URINE MICROSCOPIC (MICROSCOPIC)
--- NOTE | 2022-12-15 04:45 | PC.NURSE ---
Pt. had no issues over night and stayed till this am. Urine and stool samples sent this am.
[2022-12-15 04:49] LABS: Appearance,Urine CLEAR (Clear); Bilirubin,Urine Negative (Negative); Blood, Urine TRACE-L (Negative); Color,Urine YELLOW (Yellow); Glucose,Urine (UA) Negative (Negative); Ketones,Urine Negative (Negative); Leukocyte Esterase,Urine Negative (Negative); Nitrate,Urine Negative (Negative); Protein,Urine Negative (Negative); Urobilinogen,Urine 0.2 EU/dl (0.2)
[2022-12-15 04:59] LABS: Adenovirus F 40/41, stool Not Detected (NotDetected); Astrovirus Not Detected (NotDetected); Campylobacter Not Detected (NotDetected); Cryptosporidium Not Detected (NotDetected); Cyclospora Cayetanesis Not Detected (NotDetected); Entamoeba histolytica Not Detected (NotDetected); Enteroaggregative E coli Not Detected (NotDetected); Enterotoxigenic E coli Not Detected (NotDetected); Giardia lamblia Not Detected (NotDetected); Norovirus Not Detected (NotDetected); Plesimonas Shigalloides, PCR Not Detected (NotDetected); Salmonella, PCR Not Detected (NotDetected); Sapovirus Not Detected (NotDetected); Shiga-like toxin E coli Not Detected (NotDetected); Shigella Enterovasive E coli Not Detected (NotDetected); Vibrio Cholerae Not Detected (NotDetected); Vibrio, PCR Not Detected (NotDetected); Yersinia Entercolitica, PCR Not Detected (NotDetected)
[2022-12-15 05:07] LABS: Creatinine,Urine Random 59 mg/dL (Not Estab.)
[2022-12-15 05:11] LABS: POC Glucose,Bedside 89 (70-110)
[2022-12-15 05:12] LABS: Bacteria,Urine Trace /lpf; RBC,Urine Occasional #/hpf (0-3); WBC,Urine Occasional #/hpf (0-3)
[2022-12-15 06:38] LABS: Basophils % 0.3 % (0.1-2.0); Eosinophils # 0.2 K/mm3 (0.0-0.4); Eosinophils % 2.7 % (0.1-12.0); Hematocrit 30.4 % (37.0-47.0); Lymphocytes # 1.6 K/mm3 (0.7-4.5); Lymphocytes % 27.6 % (10-50); Mean Corpuscular Hemoglobin 26.9 pg (27.0-31.2); Mean Corpuscular Volume 81.6 fl (81-99); Mean Platelet Volume 7.3 fl (7.4-10.4); Monocytes # 0.4 K/mm3 (0.1-1.0); Monocytes % 6.1 % (1.7-9.3); Neutrophils # 3.6 K/mm3 (1.8-7.8); Neutrophils % 63.3 % (37.0-80.0); Platelet Count 237 K/mm3 (142-424); Red Blood Count 3.72 M/mm3 (4.20-5.40); Red Cell Distribution Width 16.2 % (11.5-17.5); White Blood Count 5.7 K/mm3 (4.8-10.8)
[2022-12-15 06:45] LABS: Anion Gap 15.1 mEq/L (5-15); Blood Urea Nitrogen 29 mg/dl (7-17); Calcium 7.7 mg/dl (8.4-10.2); Carbon Dioxide 24 mmol/L (22.0-30.0); Chloride 93 mmol/L (98-107); Creatinine Clearance Estimated 38 mL/min (50-200); Estimated Glomerular Filt Rate 24 ml/min (>60); GFR (African American) 29 ML/MIN (>60); Glucose 91 mg/dl (74-100); Magnesium 1.2 mg/dl (1.6-2.3); Potassium 3.1 mmoL/L (3.5-5.1); Sodium 129 mmol/L (136-145)
--- NOTE | 2022-12-15 07:10 | PC.NURSE ---
pt off the floor at this time for renal u/s.
--- NOTE | 2022-12-15 08:06 | HMH.PHAINT1 ---
Pharmacy Intervention Comments: HOME MEDICATIONS VERIFIED BY LIST FROM OUTSIDE PHARMACY.
[2022-12-15 10:52] LABS: Rotavirus A Detected (NotDetected)
[2022-12-15 10:54] LABS: Clostridium Difficile A/B, PCR Detected (NotDetected); Enteropathogenic E coli Detected (NotDetected)
[2022-12-15 12:20] LABS: POC Glucose,Bedside 120 (70-110)
--- NOTE | 2022-12-15 16:11 | PC.NURSE ---
pt alert and oriented. pt has been up ambulating around her room this shift. pt ls cta. abdomen soft, nontender, bs active. pt states her bowel movements have slowed down this shift. pt is contact precautions d/t cdiff, rotavirus, ecoli. at bedside.
--- NOTE | 2022-12-15 16:18 | EXP.ACUTE.PN ---
Subjective *Date: 12/15/22 *Time: 17:16 Interval history: Patient feeling better today, tolerated p.o. intake without any nausea or vomiting. Still having watery stools. No fever. No blood in her stool. No shortness of breath or chest pain. Medical Exam Vital signs and Labs for Last 24 Hours: Vital Signs Temp Pulse Pulse Resp BP Pulse Ox 12/15/22 15:53 98.4 F 73 18 109/52 L 100 12/15/22 08:00 60 12/15/22 11:10 99.9 F H 84 18 113/53 L 99 12/15/22 07:43 98.5 F 77 18 102/48 L 91 L 12/15/22 04:00 98.4 F 77 16 92/40 L 96 12/15/22 04:00 70 12/15/22 01:48 98 12/15/22 00:33 80 12/15/22 00:00 98.6 F 78 16 109/52 L 98 12/14/22 20:00 80 12/14/22 19:44 98.6 F 74 18 99/54 L 95 Intake and Output 12/15/22 12/15/22 12/15/22 07:59 15:59 23:59 Intake Total 1418 / 1778 360 / 1778 Output Total 300 / 300 0 / 300 Balance 1118 / 1478 360 / 1478 Intake: Intake, Oral Amount 240 / 600 360 / 600 Intake, Total IV Amount 1178 / 1178 0.9 % Sodium Chloride 1000ML 1, 600 / 600 000 ml @ 100 mls/hr IV .Q10H DOMI Rx#:[id number] Sodium Bicarbonate 150 meq In 578 / 578 Dextrose 5 % in Water 1,000 ml @ 191.667 mls/hr IV .Q6H DOMI Rx #:[id number] Output: Output, Urine Amount 300 / 300 0 / 300 Other: Number of Unmeasured Voids 1 1 Number of Bowel Movements 1 1 Weight 89.471 kg 89.41 kg Patient Weight 12/15/22 23:59 Weight 89.41 kg Laboratory Results - last 24 hr 12/14/22 04:30: Urine Color Yellow, Urine Appearance Clear, Urine pH 6.0, Ur Specific [place] 1.010, Urine Protein Negative, Urine Glucose (UA) Negative, Urine Ketones Negative, Urine Blood Trace-l, Urine Nitrate Negative, Urine Bilirubin Negative, Urine Urobilinogen 0.2, Ur Leukocyte Esterase Negative, Urine RBC Occasional, Urine WBC Occasional, Ur Squamous Epith Cells 3-5, Urine Bacteria Trace 12/14/22 04:30: Urine Creatinine 59 12/14/22 05:00: Stl Aeromonas (PCR) Not detected, Stl C. cayetanensis PCR Not detected, Stool Rotavirus (PCR) Detected A, Stl Adenov F 40/41 PCR Not detected, Stool Astrovirus (PCR) Not detected, Stool Campylobacter PCR Not detected, Stl C.difficile Tox PCR Detected A, Stool Cryptosporidium PCR Not detected, Stl E.coli Shiga Tox PCR Not detected, Stool E coli O157 PCR Not detected, Stl Enterotoxigenic E PCR Not detected, Stool EPEC (PCR) Detected A, Stool EAEC (PCR) Not detected, Stl E. histolytica PCR Not detected, Stool Giardia Lamblia PCR Not detected, Stool Salmonella PCR Not detected, Stool Sapovirus (PCR) Not detected, Stl P. shigelloides PCR Not detected, Stl Shigella/EIEC PCR Not detected, St Y.enterocolitica PCR Not detected, Stool Vibrio (PCR) Not detected, Stl Vibrio cholerae PCR Not detected, Stl Norovirus GI/GII PCR Not detected 12/14/22 16:50: POC Glucose 101 12/14/22 20:52: POC Glucose 135 H 12/14/22 21:10: Sodium 126 L, Potassium 2.4 L*, Chloride 89 L, Carbon Dioxide 23, Anion Gap 16.4 H, BUN 34 H, Creatinine 3.00 H D, Estimated Creat Clear 26, Estimated GFR 16 L*, Est GFR ( Amer) 19 L* D, Glucose 120 H D, Calcium 7.7 L 12/15/22 05:04: POC Glucose 89 12/15/22 05:58: WBC 5.7, RBC 3.72 L, Hct 30.4 L, MCV 81.6, MCH 26.9 L, MCHC 33.0, RDW 16.2, Plt Count 237 D, MPV 7.3 L, Neut % (Auto) 63.3, Lymph % (Auto) 27.6, Vigo % (Auto) 6.1, Eos % (Auto) 2.7, Baso % (Auto) 0.3, Neut # (Auto) 3.6, Lymph # (Auto) 1.6, Vigo # (Auto) 0.4, Eos # (Auto) 0.2, Baso # (Auto) 0.0 12/15/22 05:58: Sodium 129 L, Potassium 3.1 L D, Chloride 93 L, Carbon Dioxide 24, Anion Gap 15.1 H, BUN 29 H, Creatinine 2.10 H D, Estimated Creat Clear 38, Estimated GFR 24 L, Est GFR ( Amer) 29 L D, Glucose 91 D, Calcium 7.7 L, Magnesium 1.2 L 12/15/22 12:09: POC Glucose 120 H I & O for Labs for Last 24 Hours: Intake & Output 12/12/22 12/13/22 12/14/22 12/15/22 23:59 23:59 23:59 23:59 Intake Total 240 / 240 1778 / 1778 Output Total 200
[2022-12-15 16:37] LABS: POC Glucose,Bedside 99 (70-110)
[2022-12-15 19:22] LABS: Anion Gap 14.2 mEq/L (5-15); Blood Urea Nitrogen 18 mg/dl (7-17); Calcium 8.1 mg/dl (8.4-10.2); Carbon Dioxide 28 mmol/L (22.0-30.0); Chloride 93 mmol/L (98-107); Creatinine Clearance Estimated 62 mL/min (50-200); Estimated Glomerular Filt Rate 41 ml/min (>60); GFR (African American) 50 ML/MIN (>60); Glucose 98 mg/dl (74-100); Magnesium 1.8 mg/dl (1.6-2.3); Potassium 3.2 mmoL/L (3.5-5.1); Sodium 132 mmol/L (136-145)
[2022-12-16] VITALS: BP 106/59; PULSE 77; RESP 18; TEMP 37.1; O2SAT 97
[2022-12-16 00:16] LABS: POC Glucose,Bedside 103 (70-110)
[2022-12-16 04:00] VITALS: BP 115/64; PULSE 81; RESP 18; TEMP 37.4; O2SAT 97; BMI 35.4
[2022-12-16 06:23] LABS: POC Glucose,Bedside 91 (70-110)
[2022-12-16 07:07] LABS: Alanine Aminotransferase 27 U/L (12-78); Albumin Level 3.3 g/dl (3.5-5.0); Albumin/Globulin Ratio 1.2 (1.1-1.8); Alkaline Phosphatase 89 U/L (38-126); Anion Gap 14.2 mEq/L (5-15); Aspartate Amino Transferase 34 U/L (14-36); Bilirubin,Total 0.3 mg/dl (0.2-1.3); Blood Urea Nitrogen 14 mg/dl (7-17); Calcium 8.5 mg/dl (8.4-10.2); Carbon Dioxide 27 mmol/L (22.0-30.0); Chloride 99 mmol/L (98-107); Creatinine Clearance Estimated 74 mL/min (50-200); Estimated Glomerular Filt Rate 50 ml/min (>60); GFR (African American) 61 ML/MIN (>60); Globulin 2.7 g/dL (1.3-3.2); Glucose 102 mg/dl (74-100); Magnesium 1.8 mg/dl (1.6-2.3); Potassium 4.2 mmoL/L (3.5-5.1); Sodium 136 mmol/L (136-145)
--- NOTE | 2022-12-16 07:09 | ECG_ITS ---
APPROVED REPORT Exam: Resting ECG HR:74 bpm ECG Measurements Heart Rate 74 AXES MS 200 P 65 QRSd 76 QRS 48 QT 362 T 64 QTc 390 Conclusion SINUS RHYTHM LOW QRS VOLTAGE IN PRECORDIAL LEADS [QRS DEFLECTION < 1.0 mV IN CHEST LEADS] BORDERLINE ECG UNCONFIRMED REPORT Electronically signed by : Sukumar Ortiz MD 12/16/2022 20:09:53
--- NOTE | 2022-12-16 07:23 | EXP.DC.SUM ---
General Admission date:: 12/14/22 Discharge date: 12/16/22 HPI HPI HPI: This is a 62-year-old white female that presents to [facility] emergency department with concerns of nausea vomiting diarrhea since Thursday. She is accompanied by her Alexandre who assists with the history. Her past medical history significant for diabetes, hypertension, BMI 36 and depression. She reports that she was in her usual state of health until Thursday when she started experiencing nausea followed by several episodes of vomiting then diarrhea. She characterizes the diarrhea as watery and profuse with multiple episodes a day. She reports inability to keep p.o. down with identified fatigue and weakness over the last 24 hours. She denied unusual headaches, jaundice, hematemesis, melena or hematochezia. She reports some tenesmus but no crescendo abdominal pain. She denies dysuria, brown urine or flank pain. She has identified decreased urine output. She recalls no associated sick contacts or unusual food exposure. She reports no routine NSAID use [id number]. No history of chronic UTIs. No kidney stones. No recent antibiotics but does report a cholecystectomy in September 2022. In the ED her presenting blood pressure was 71/45 with stable heart rate and saturating appropriately on room air. Her CBC identified a normal white blood cell count and her electrolytes identified several derangements including hyponatremia hypokalemia bicarb 18 with elevated BUN and creatinine 5.1. Her lactic acid was normal and her lipase was normal. She reports that she is already feeling better with IV fluid resuscitation. Follow-up creatinine has decreased to 4.4. Hospital Course Hospital Course Hospital Course: This is a 62-year-old female with no prior history of kidney disease that presents to the ED with nausea vomiting and diarrhea and found to have a creatinine of 5.1 it is improving with fluid resuscitation.? Creatinine improved to 1.1 on day of discharge. Tolerating oral vancomycin for her C. difficile. No bowel movement overnight. Overall feeling better. Hemodynamically stable. Stable for discharge home to complete oral antibiotic course. Problems addressed as follows: C. difficile colitis Diarrhea Presented with copious watery diarrhea. Stool panel positive for C. difficile, rotavirus, 2 forms of E. coli. Initiated on oral vancomycin 125 mg 4 times daily. Plan to complete 10-day course. Initiated on a fiber supplement during admission. Recommend holding her bowel regimen on discharge. Tolerating p.o. intake for over 24 hours prior to discharge home. Acute kidney injury Prerenal due to dehydration from diarrhea along with medication effect from her diuretic and MANI inhibitor. Improved to 1.1 on day of discharge, down from 5.1 on admission.? Renal ultrasound with no gross abnormalities identified. Normal echogenicity and size. No hydronephrosis. Hyponatremia Hypokalemia Hypocalcemia Significant electrolyte disturbances related to her vomiting and diarrhea.? Replaced as needed.? Received IV magnesium, calcium, potassium during admission. Electrolytes normalized by day of discharge. Needs repeat labs in 1 to 2 weeks to monitor for stability of electrolytes. We will hold diuretic at discharge to decrease risk for any further electrolyte disturbances. No supplementation required at discharge. Diabetes Routine blood sugar monitoring during admission. Held her Ozempic during admission. Treated with insulin therapy during admission. Glucose remained stable. Defer further management to PCP. Hypertension Routine blood pressure monitoring during hospitalization. Blood pressure remained well controlled below 130/80. Held her blood pressure meds during admission. Recommend resuming her amlodipine and then her enalapril if monitoring at home consistently shows 140/90. We will hold diuretic at this time. Did continue her beta-tomi during hos
[2022-12-16 07:33] VITALS: BP 97/56; PULSE 75; RESP 18; TEMP 36.7; O2SAT 100
[2022-12-16 08:00] VITALS: PULSE 75; O2SAT 100
[2022-12-16 09:14] LABS: Sodium, Urine <20 mmol/L (Not Estab.)
--- NOTE | 2022-12-16 10:12 | HMH.PHAINT1 ---
Pharmacy Intervention Comments: DISCHARGE MEDICATION COUNSELING COMPLETED. PATIENT WAS TOLD TO START VANCOMYCIN SOLUTION. PATIENT WAS TOLD OF POSSIBLE SIDE EFFECT OF NAUSEA OR DIARRHEA AND WAS INSTRUCTED TO TAKE WITH FOOD IF THIS OCCURS. NURSE WILL GET THE VANCOMYCIN LIQUID FROM THE [facility] AND GIVE TO PATIENT RIGHT BEFORE THEY LEAVE. PATIENT WAS TOLD TO HOLD AMLODIPINE AND ENALAPRIL. WILL MONITOR BLOOD PRESSURE AT HOME AND RESUME THESE MEDS IF IT REACHES >140/90. WILL FOLLOW UP WITH PCP. PATIENT WILL STOP TAKING HYDROCHLOROTHIAZIDE AND MIRALAX. PATIENT DID NOT HAVE ANY QUESTIONS ABOUT THESE CHANGES OR HER CONTINUED MEDICATIONS.
[2022-12-16 14:21] LABS: Calcium, Ionized 4.6 mg/dL (4.5-5.6)
--- NOTE | 2022-12-17 12:32 | CARE MANAGER ---
Contacted patient related to hospital discharge. She states she is feeling much better. She is aware of her medication changes and her follow up appointment. Denies questions or concerns. KEDAR Bowman
== END 2022-12-16 10:25 | disposition home or self-care (01) | DRG 372 ==
LOC: ER 09:59 → 2ND 14:58
PROVIDERS: Internal Medicine Adolescent Medicine; Admitting Provider Family Medicine; Emergency Provider Student in an Organized Health Care Education/Training Program; PCP Emergency Medicine; Visit Provider Family Medicine
DX: A04.72 Enterocolitis due to Clostridium difficile, not specified as recurrent (principal); E87.1 Hypo-osmolality and hyponatremia; N17.9 Acute kidney failure, unspecified; I10 Essential (primary) hypertension; K80.20 Calculus of gallbladder without cholecystitis without obstruction; F32.9 Major depressive disorder, single episode, unspecified; E83.51 Hypocalcemia; E83.42 Hypomagnesemia; E87.6 Hypokalemia; E66.9 Obesity, unspecified; Z68.35 Body mass index [BMI] 35.0-35.9, adult; Z87.891 Personal history of nicotine dependence; Z79.899 Other long term (current) drug therapy; E11.9 Type 2 diabetes mellitus without complications; Z79.85 Long-term (current) use of injectable non-insulin antidiabetic drugs
CPT/HCPCS: 36415; 76770; 80048; 80053; 81001; 82330; 82570; 82962; 83605; 83690; 83735; 84300; 85025; 87507; 87636; 93005; 99285; C9803; J2405; J3475; U0003; U0005

== ENCOUNTER → 2023-07-28 07:34 | Outpatient (CLI) | payer MEDICARE, SELFPAY ==
--- NOTE | 2023-07-28 07:34 | MM_ITS ---
PROCEDURE INFORMATION: Exam: MG Bilateral Screening 3D Mammography Exam date and time: 07/28/2023 7:55 AM Age: 63 years old Clinical indication: Screening mammogram TECHNIQUE: Imaging protocol: Bilateral Screening tomosynthesis and 2D mammography including computer-aided detection (CAD) when performed. COMPARISON: 1. MG MM DIG MAMM DX UNILAT RT CAD 05/22/2020 1:48 PM 2. MG MM DIG MAMM DX UNILAT RT CAD 11/10/2019 2:44 PM 3. MG MM DIG SCREENING MAMM BI W/CAD 11/01/2019 8:44 AM 4. MG DMSB DIG MAMM-SCREEN CELSA 10/25/2013 3:54 PM FINDINGS: MAMMOGRAPHY: Breast composition: There are scattered areas of fibroglandular density. Mass: None. Architectural distortion: No new or suspicious architectural distortion. Calcifications: No new or suspicious calcifications are present Asymmetric density: No new or suspicious asymmetric density is present Skin thickening: None. Axillary adenopathy: None. IMPRESSION: No mammographic evidence of malignancy. Recommend annual screening mammography unless otherwise clinically indicated. ASSESSMENT: BI-RADS category 1: Negative
== END ==
PROVIDERS: Visit Provider Family Medicine
DX: Z12.31 Encounter for screening mammogram for malignant neoplasm of breast (principal)
CPT/HCPCS: 77063; 77067

== ENCOUNTER 2023-11-26 13:22 | Outpatient (CLI) | payer MEDICARE, SELFPAY ==
[2023-11-26 18:50] LABS: Basophils # 0.1 K/mm3 (0-0.2); Basophils % 0.7 % (0.1-2.0); Eosinophils # 0.2 K/mm3 (0.0-0.4); Eosinophils % 2.3 % (0.1-12.0); Hemoglobin 13.3 g/dL (12.2-16.2); Lymphocytes # 2.8 K/mm3 (0.7-4.5); Lymphocytes % 28.8 % (10-50); Mean Corpuscular Volume 99.8 fl (81-99); Monocytes # 0.4 K/mm3 (0.1-1.0); Monocytes % 3.8 % (1.7-9.3); Neutrophils # 6.3 K/mm3 (1.8-7.8); Neutrophils % 64.4 % (37.0-80.0); Platelet Count 303 K/mm3 (142-424); Red Cell Distribution Width 14.6 % (11.5-17.5); White Blood Count 9.8 K/mm3 (4.8-10.8)
[2023-11-26 18:51] LABS: Alanine Aminotransferase 29 U/L (12-78); Albumin Level 3.9 g/dl (3.5-5.0); Albumin/Globulin Ratio 1.3 (1.1-1.8); Alkaline Phosphatase 119 U/L (38-126); Anion Gap 10.9 mEq/L (5-15); Aspartate Amino Transferase 34 U/L (14-36); Bilirubin,Total 0.5 mg/dl (0.2-1.3); Blood Urea Nitrogen 16 mg/dl (7-17); Calcium 9.6 mg/dl (8.4-10.2); Carbon Dioxide 29 mmol/L (22.0-30.0); Chloride 102 mmol/L (98-107); Chol/HDL Ratio 5.4 (1-3.5); Cholesterol 293 mg/dl (140-200); Estimated Glomerular Filt Rate 50 ml/min (>60); GFR (African American) 60 ML/MIN (>60); Glucose 91 mg/dl (74-100); HDL Cholesterol 54 mg/dl (40-60); Potassium 4.9 mmoL/L (3.5-5.1); Sodium 137 mmol/L (136-145); Total Protein,Serum 6.9 g/dl (6.3-8.2); Triglycerides 122 mg/dl (30-150); VLDL Cholesterol 24 mg/dL (0-40)
[2023-11-26 18:53] LABS: Creatinine,Urine Random 24 mg/dL (Not Estab.)
[2023-11-26 18:58] LABS: Microalbumin < 6.000 mg/L (0-16.7)
[2023-11-26 19:03] LABS: Direct LDL Cholesterol 184.89 mg/dL (100-129)
[2023-11-26 19:22] LABS: Thyroid Stimulating Hormone 2.26 uIU/mL (0.465-4.68)
[2023-11-26 19:23] LABS: Hemoglobin A1C 5.6 % (4.0-6.0)
[2023-11-26 19:41] LABS: Vitamin B12 777 pg/mL (239-931)
== END 2023-11-26 23:59 | disposition home or self-care (01) ==
LOC: LAB.DROPOF 11-27 13:24
PROVIDERS: PCP Internal Medicine; Visit Provider Internal Medicine
DX: E11.9 Type 2 diabetes mellitus without complications (principal); R53.83 Other fatigue; E78.5 Hyperlipidemia, unspecified; E55.9 Vitamin D deficiency, unspecified; E53.8 Deficiency of other specified B group vitamins; E05.90 Thyrotoxicosis, unspecified without thyrotoxic crisis or storm; Z79.899 Other long term (current) drug therapy
CPT/HCPCS: 80053; 80061; 82043; 82306; 82570; 82607; 83036; 84443; 85025

== ENCOUNTER 2024-01-13 15:33 | Outpatient (CLI) | payer MEDICARE, SELFPAY ==
[2024-01-13 16:58] LABS: Alanine Aminotransferase 21 U/L (12-78); Albumin Level 3.9 g/dl (3.5-5.0); Albumin/Globulin Ratio 1.3 (1.1-1.8); Alkaline Phosphatase 93 U/L (38-126); Anion Gap 12.3 mEq/L (5-15); Aspartate Amino Transferase 27 U/L (14-36); Bilirubin,Total 0.5 mg/dl (0.2-1.3); Blood Urea Nitrogen 16 mg/dl (7-17); Calcium 9.8 mg/dl (8.4-10.2); Carbon Dioxide 28 mmol/L (22.0-30.0); Chloride 102 mmol/L (98-107); Estimated Glomerular Filt Rate 45 ml/min (>60); GFR (African American) 55 ML/MIN (>60); Glucose 93 mg/dl (74-100); Potassium 4.3 mmoL/L (3.5-5.1); Sodium 138 mmol/L (136-145); Total Protein,Serum 6.9 g/dl (6.3-8.2)
[2024-01-13 18:05] LABS: Folate 8.42 ng/mL
== END 2024-01-13 23:59 | disposition home or self-care (01) ==
LOC: LAB 15:34
PROVIDERS: PCP Internal Medicine; Visit Provider Obstetrics & Gynecology
DX: N18.31 Chronic kidney disease, stage 3a (principal); D64.9 Anemia, unspecified
CPT/HCPCS: 36415; 80053; 82746

== ENCOUNTER 2024-02-03 09:22 | Outpatient (CLI) | payer MEDICARE, SELFPAY ==
[2024-02-03 20:47] LABS: Chol/HDL Ratio 4.2 (1-3.5); Cholesterol 264 mg/dl (140-200); HDL Cholesterol 63 mg/dl (40-60); Triglycerides 128 mg/dl (30-150); VLDL Cholesterol 26 mg/dL (0-40)
[2024-02-03 20:58] LABS: Direct LDL Cholesterol 150.42 mg/dL (100-129)
[2024-02-03 21:16] LABS: Hemoglobin A1C 5.6 % (4.0-6.0)
== END 2024-02-03 23:59 | disposition home or self-care (01) ==
LOC: LAB.DROPOF 02-04 09:23
PROVIDERS: PCP Internal Medicine; Visit Provider Internal Medicine
DX: E78.5 Hyperlipidemia, unspecified (principal); E11.9 Type 2 diabetes mellitus without complications
CPT/HCPCS: 80061; 83036

== ENCOUNTER 2024-06-20 08:24 | Outpatient (CLI) | payer MEDICARE, SELFPAY ==
--- NOTE | 2024-06-20 08:24 | CT_ITS ---
APPROVED REPORT Voice Pathologist: CLINICAL INDICATION Risk stratification TECHNIQUE Image Acquisition: A 128 slice MDCT scanner (NetClaritya View) was used for data acquisition. A noncontrast coronary calcium scan was performed. A CT attenuation threshold of 130 Hounsfield units (HU) was used for the detection of calcium in contiguous voxels of 1 sq mm in area to be counted as individual lesions. A tube voltage of 120 KVp was used. The patient received no medications prior to the coronary calcium CT. Image Reconstruction Transaxial images were reconstructed at 0.67 mm slide thickness. Data was reviewed interactively on an advanced workstation capable of 2 and 3-dimensional displays in all conventional reconstruction formats, including multiplanar reformations, maximum intensity projections, curved multiplanar reformations, and volume rendered reconstructions. When applicable, selected routine images describing the relevant coronary anatomy and pathology were saved and sent to PACS. Complications None Technical Quality Overall image quality was good. Total DLP (Dose-Length Product) is 125.9 mGy-cm. The reported value represents the total of one or more individual components during the CT acquisition of this date and at this time, and as such, the same value may appear in more than one CT report depending on the interpreting/reporting physicians. COMPARISON None FINDINGS CT Coronary Calcium Scoring LMA (Left Main Artery) = 35 LAD (Left Anterior Descending) = 204 LCX (Left Coronary Circumflex) = 149 RCA (Right Coronary Artery) = 178 Total Calcium Score = 566 using the AJ-130 method. There is also calcification in the aortic valve and the ascending and descending thoracic aorta. IMPRESSION -Coronary artery calcification is present. -Total Calcium Score (Agatston Score) = 566 using the AJ-130 method. -The observed calcium score of 566 is at 96th percentile for subjects of the same age, sex, and race/ethnicity. The interpretation of the calcium heart score is based on the following continuum*: 0 = no calcified plaque detected (risk of coronary artery disease is very low ??? less than 5%) 1-10 = calcium detected in extremely minimal levels (risk of coronary diseases is still low ??? less than 10%) 11-100 = mild levels of plaque detected with certainty (mild or minimal narrowing of heart arteries is likely) 101-400 = definite,at least moderate levels of plaque detected (relatively high risk of a heart attack within 3-5 years) >401-999 = extensive levels of plaque detected (high risk of heart attack, high levels of vascular disease are present, high likelihood of at least one significant coronary narrowing) *The calcium heart score quantifies the burden of coronary calcification/plaque in the coronary arteries. The calcium heart score does not evaluate the presence or the burden of non-calcified (i.e. soft) plaque. The coronary and cardiac findings of this Coronary Calcium CT were reviewed, reported, and signed by Luis Membreno MD ([employer]). Conclusion Electronically signed by : Stephanie Membreno MD 06/21/2024 12:15:56
--- NOTE | 2024-06-20 09:06 | CA_ITS ---
APPROVED REPORT EXAM: Comprehensive 2D, Doppler, and color-flow Echocardiogram Operations Scheduler: Margie Orr RT(R) Ht: 5 ft 3 in Wt: 197lbs BSA: 1.92 BP: 140/57 mmHg Indications: dizziness, ex smoker, HTN, DM, hyperlipidemia, CKD III, GERD. 2D Dimensions Left Atrium 3.90 cm F: 2.7 - 3.8 LVEF (Harris's) 56.60 % F: 54 - 74 LVOT 1.99 cm (M/F) 1.5-2.5 LV Volume 75.80 mL F: 46 - 106 LV Volume Index 39.5 mL/m2 F: 29 - 61 LA Volume 22.90 mL LA Volume Index 11.93 mL/m2 (M/F) 16-34 EF AP4 56.30 % EF AP2 57.5 % EF BP 56.6 % GL Strain -19.1 % M-Mode Dimensions RVDd 3.49 cm (0.9-2.6) LVDd 2.85 cm (3.5-5.7) Ao Diam 2.56 cm (2.0-3.7) LVDs 2.13 cm (3.5-5.7) IVSd 1.06 cm (0.6-1.1) PWd 1.02 cm (0.6-1.1) EF (Teich) 51.80% FS 25.30% EDV (Teich) 30.90 mL TAPSE 2.00 (<1.7) ESV (Teich) 14.90 mL LV Diastology E Decel Time 204 (160-240 msec) E/A Ratio 0.8 MED E' 6.7 (>= 7 cm/sec) E'/MED E' Ratio 14.46 (<= 14) LAT E' 7.4 (>= 10 cm/sec) E/LAT E' Ratio 13.09 (<= 14) Mitral Valve MV E Max Tunde. 97.0 (40-130 cm/s) MV A Velocity 127.0 (40-130 cm/s) E/A Ratio 0.76 MV Decel. Time 204 (160-240 ms) Left Ventricle The left ventricle is normal size. The left ventricular systolic function is normal. The left ventricular ejection fraction is within the normal range. There is increased LV wall thickness. There is normal LV segmental wall motion. The left ventricular diastolic function is normal. LVEF is 55%. Right Ventricle The right ventricle is normal size. The right ventricular systolic function is normal. Atria The left atrium size is normal. The right atrium size is normal. Color Doppler demonstrates possible presence of interatrial shunt. Aortic Valve The aortic valve leaflets are mildly thickened. There is no aortic valvular stenosis. No aortic regurgitation is present. Mitral Valve The mitral valve leaflets are mildly thickened. No evidence of mitral valve stenosis. Trace mitral regurgitation. Tricuspid Valve Tricuspid valve is grossly normal in structure and function. Trace tricuspid regurgitation. There is insufficient TR jet to estimate RVSP. Pulmonic Valve The pulmonary valve is normal in structure. Trace pulmonic regurgitation. Great Vessels The aortic root is normal in size. IVC is normal in size and collapses >50% with inspiration. Pericardium There is no pericardial effusion. Other Information Study Quality: Fair Conclusion Normal biventricular size and systolic function. No significant valvular stenosis or regurgitation. Color Doppler demonstrates possible presence of interatrial shunt. In the setting of normal RV size and function, no further evaluation is recommended for the possible interatrial shunt. Clinical correlation is suggested. Electronically signed by : Stephanie Membreno MD 06/28/2024 11:27:26
== END 2024-06-20 23:59 | disposition home or self-care (01) ==
PROVIDERS: PCP Internal Medicine; Visit Provider Physician Assistant
DX: R06.02 Shortness of breath (principal); R42 Dizziness and giddiness; I10 Essential (primary) hypertension; R94.31 Abnormal electrocardiogram [ECG] [EKG]
CPT/HCPCS: 75571; 93306

== ENCOUNTER 2024-08-04 10:30 | Outpatient (CLI) | payer MEDICARE, SELFPAY ==
[2024-08-04 18:41] LABS: Basophils # 0.1 K/mm3 (0-0.2); Basophils % 0.7 % (0.1-2.0); Eosinophils # 0.2 K/mm3 (0.0-0.4); Lymphocytes # 2.8 K/mm3 (0.7-4.5); Lymphocytes % 30.5 % (10-50); Mean Corpuscular Hemoglobin 29.3 pg (27.0-31.2); Mean Corpuscular Volume 94.6 fl (81-99); Mean Platelet Volume 10.1 fl (7.4-10.4); Monocytes # 0.5 K/mm3 (0.1-1.0); Monocytes % 5.4 % (1.7-9.3); Neutrophils # 5.6 K/mm3 (1.8-7.8); Neutrophils % 61.1 % (37.0-80.0); Platelet Count 319 K/mm3 (142-424); Red Blood Count 4.44 M/mm3 (4.20-5.40); Red Cell Distribution Width 12.5 % (11.5-17.5); White Blood Count 9.1 K/mm3 (4.8-10.8)
[2024-08-04 18:53] LABS: Hemoglobin A1C 5.5 % (4.0-6.0)
[2024-08-04 19:13] LABS: Chol/HDL Ratio 2.8 (1-3.5); Cholesterol 182 mg/dl (140-200); HDL Cholesterol 65 mg/dl (40-60); Triglycerides 125 mg/dl (30-150); VLDL Cholesterol 25 mg/dL (0-40)
[2024-08-04 19:24] LABS: Direct LDL Cholesterol 107.33 mg/dL (100-129)
[2024-08-04 19:42] LABS: Thyroid Stimulating Hormone 2.15 uIU/mL (0.465-4.68)
== END 2024-08-04 23:59 | disposition home or self-care (01) ==
LOC: LAB.DROPOF 08-06 08:30
PROVIDERS: PCP Internal Medicine; Visit Provider Internal Medicine
DX: E78.5 Hyperlipidemia, unspecified (principal); E11.69 Type 2 diabetes mellitus with other specified complication; Z79.85 Long-term (current) use of injectable non-insulin antidiabetic drugs; E66.9 Obesity, unspecified; D64.9 Anemia, unspecified; Z68.35 Body mass index [BMI] 35.0-35.9, adult
CPT/HCPCS: 80061; 83036; 84443; 85025

== ENCOUNTER 2024-08-17 07:42 | Outpatient (RCR) | payer MEDICARE, SELFPAY ==
--- NOTE | 2024-08-17 14:47 | HMH.PTOPEV ---
PT Outpatient Evaluation Rehab PT Outpatient Evaluation Start: 08/17/24 14:20 Freq: Status: Active Protocol: Document 08/17/24 14:20 PHORNE (Rec: 08/17/24 14:46 PHORNE [id number]) E-signed By Smith Mosher, PT Outpatient Therapy Subjective History Subjective History This is the initial PT eval for Liliana Wyatt, 64 yowf who presents with c/o chronic vertigo symptoms that have worsened acutely over the past several weeks. She reports, My sister was diagnosed with Meniere's disease and I saw an ENT that told me I have it too. She reports background vertigo symptoms that happen intermittently and can last for 30-45 minutes. She also reports more recently having acute onset bouts of vertigo in certain positions that last for 30-45 seconds. She reports PMH of frequent ear infections on the R side, R side hearing loss and tinnitus , HTN controlled with meds, DM , CRI, cataract surgery performed several years ago, and an unspecified heart murmur. New diagnosis of cancer in past 12 No months? Chief Complaint Other Symptoms Relieved By Activity Symptom Description Intermittent,Activity Dependent Balance Eval Hx of Falls Hx Falls No Gait/Posture Asssessment General Gait Observation No Deviations/Normal Nystagmus Nystagmus Presence Positional Nystagmus Description Right Direction,Geotropic, Right Torsion,Latency - Immediate Oculomotor Gaze Oculomotor Gaze Nml: Vergence Smooth Pursuit Saccades Cover/Uncover Cross Cover Abn: VOR Cancellation Miscellaneous Dx PT Eval Objective Objective Placedo Hallpike testing reveals upbeating and R torsional nystagmus during R side testing which denotes likely R side BPPV in PSC. Uwlozw-Ygk-Vmuf: normal on L side, absent hearing on R side Rotational and vertical movements with gaze stabilization result in increased vertigo symptoms with VOR cancellation testing. Miscellaneous Goals Short Term Goals 4 wks 1.) Pt will have No episodes of positional vertigo for 4 weeks consistently. Residential Goals 8 wks 1.) Pt will improve dynamic balance in standing to Good. 2.) Pt will have decreased episodes of vertigo with VOR cancellation activity to minimal. Outpatient Therapy Assessment Impairments Problems/Impairmments Impaired Walking,Impaired Standing,Impaired Driving, Impaired Recreational Activities,Impaired Balance, Impaired Self Care/Self Management Prognosis Comment Skilled therapy is indicated to decrease vertigo symptoms, improve dynamic and static balance in standing in order to return pt to PLOF. Clinical Impression Consistent with Diagnosis Yes Consistent with also: Additional details: H81.11 BPPV R ear Outpatient Therapy Plan of Care Frequency Times per week 1-2 Duration Number of Weeks 8 Addendums This patient is a candidate for social No or vocational rehab? Patient/Guardian verbally acknowledges Yes understanding of treatment program and consents to further treatment? Patient/Guardian verbally acknowledges Yes understanding of diagnosis, prognosis and goals for treatment? Eval Complexity PT Charges 03062 - High Complexity Shoulder/Elbow Eval Shoulder Objective Measurements Elbow Objective Measurements PHYSICIAN CERTIFICATION: I certify the specified therapy services for Liliana Wyatt are required, authorized, and reviewed every 30 days.
== END 2024-08-17 23:59 | disposition home or self-care (01) ==
LOC: PT 07:42
PROVIDERS: Visit Provider Internal Medicine
DX: H81.09 Meniere's disease, unspecified ear (principal)
CPT/HCPCS: 97163

== ENCOUNTER 2024-08-17 09:23 | Outpatient (CLI) | payer MEDICARE, SELFPAY ==
--- NOTE | 2024-08-17 09:23 | MM_ITS ---
PROCEDURE INFORMATION: Exam: MG Bilateral Screening 3D Mammography Exam date and time: 08/17/2024 9:14 AM Age: 64 years old Clinical indication: Screening examination. Her mother had breast cancer in her late 60s and her sister had breast cancer in her 40s. TECHNIQUE: Imaging protocol: Bilateral Screening tomosynthesis and 2D mammography including computer-aided detection (CAD) when performed. COMPARISON: 1. MG MM DIG SCREENING MAMM BI W/CAD 07/28/2023 7:55 AM 2. MG MM DIG MAMM DX UNILAT RT CAD 05/22/2020 1:48 PM 3. MG MM DIG MAMM DX UNILAT RT CAD 11/10/2019 2:44 PM 4. MG MM DIG SCREENING MAMM BI W/CAD 11/01/2019 8:44 AM FINDINGS: MAMMOGRAPHY: Breast composition: There are scattered areas of fibroglandular density. Mass: No suspicious mass. Architectural distortion: None. Calcifications: No suspicious calcifications. Asymmetric density: None. Skin thickening: None. Axillary adenopathy: None. IMPRESSION: No mammographic evidence of malignancy. Annual screening is recommended unless otherwise clinically indicated. ASSESSMENT: BI-RADS Category 1: Negative.
== END 2024-08-17 23:59 | disposition home or self-care (01) ==
LOC: RAD 09:23
PROVIDERS: PCP Internal Medicine; Visit Provider Internal Medicine
DX: Z12.31 Encounter for screening mammogram for malignant neoplasm of breast (principal)
CPT/HCPCS: 77063; 77067

== ENCOUNTER 2024-08-31 08:59 | Outpatient (CLI) | payer MEDICARE, SELFPAY ==
[2024-08-31 18:25] LABS: Alanine Aminotransferase 33 U/L (12-78); Albumin/Globulin Ratio 1.5 (1.1-1.8); Alkaline Phosphatase 117 U/L (38-126); Anion Gap 12.8 mEq/L (5-15); Aspartate Amino Transferase 36 U/L (14-36); Bilirubin,Total 0.3 mg/dl (0.2-1.3); Blood Urea Nitrogen 16 mg/dl (7-17); Calcium 9.7 mg/dl (8.4-10.2); Carbon Dioxide 30 mmol/L (22.0-30.0); Chloride 100 mmol/L (98-107); Estimated Glomerular Filt Rate 50 ml/min (>60); GFR (African American) 60 ML/MIN (>60); Globulin 2.6 g/dL (1.3-3.2); Glucose 93 mg/dl (74-100); Potassium 4.8 mmoL/L (3.5-5.1); Sodium 138 mmol/L (136-145); Total Protein,Serum 6.6 g/dl (6.3-8.2)
== END 2024-08-31 23:59 | disposition home or self-care (01) ==
LOC: LAB.DROPOF 09-01 08:59
PROVIDERS: PCP Internal Medicine; Visit Provider Internal Medicine
DX: E11.69 Type 2 diabetes mellitus with other specified complication (principal); E66.9 Obesity, unspecified; Z68.35 Body mass index [BMI] 35.0-35.9, adult
CPT/HCPCS: 80053

== ENCOUNTER 2024-10-27 08:43 | Outpatient (CLI) | payer MEDICARE, SELFPAY ==
[2024-10-27 20:52] LABS: Alanine Aminotransferase 25 U/L (12-78); Albumin Level 4.2 g/dl (3.5-5.0); Albumin/Globulin Ratio 1.6 (1.1-1.8); Alkaline Phosphatase 106 U/L (38-126); Anion Gap 14.1 mEq/L (5-15); Aspartate Amino Transferase 29 U/L (14-36); Bilirubin,Total 0.6 mg/dl (0.2-1.3); Blood Urea Nitrogen 15 mg/dl (7-17); Carbon Dioxide 30 mmol/L (22.0-30.0); Chloride 100 mmol/L (98-107); Estimated Glomerular Filt Rate 50 ml/min (>60); GFR (African American) 60 ML/MIN (>60); Globulin 2.6 g/dL (1.3-3.2); Glucose 84 mg/dl (74-100); Potassium 5.1 mmoL/L (3.5-5.1); Sodium 139 mmol/L (136-145); Total Protein,Serum 6.8 g/dl (6.3-8.2)
[2024-10-27 21:06] LABS: Creatinine,Urine Random 16 mg/dL (Not Estab.)
[2024-10-27 21:07] LABS: Microalbumin < 6.000 mg/L (0-16.7)
== END 2024-10-27 23:59 | disposition home or self-care (01) ==
LOC: LAB.DROPOF 10-28 11:08
PROVIDERS: PCP Family Medicine; Visit Provider Family Medicine
DX: E11.69 Type 2 diabetes mellitus with other specified complication (principal); E66.9 Obesity, unspecified
CPT/HCPCS: 80053; 82043; 82570

== ENCOUNTER 2025-01-10 07:05 | Outpatient (CLI) | payer MEDICARE, SELFPAY ==
--- OUTSIDE RECORDS SUMMARY | 2025-01-10 07:08 | XMS_ITS | Clinical Summary ---
Author Organization Healthcare Address [address] [place] [address] Care Team Providers Care Fermenting Cellars Supervisor Name Role Phone Anshul Pham MD Primary Care Provider [phone] Allergies Active Allergy Reactions Criticality Noted Date Comments Acyclovir Unknown - Patient st ates they do not know rxn details Low 05/10/2014 Ampicillin Unknown - Patient st ates they do not know rxn details,Rash Low 05/10/2014 Ergotamine Unknown - Patient st ates they do not know rxn details,Hives Medium 05/10/2014 Fluconazole Hives Medium 10/31/2022 Statins Other - please docum ent in the comment field Low 10/31/2022 Sulfa Drugs Unknown - Patient st ates they do not know rxn details Low 05/10/2014 Sumatriptan Hives Medium 10/31/2022 Topiramate Unknown - Patient st ates they do not know rxn details,Hives Medium 06/28/2014 Medications Flaxseed-June Prim-Bilberry 250-125-10 MG capsule 4 Active amLODIPine (Norvasc) 2.5 MG tablet 1 Active ARIPiprazole (Abilify) 5 MG tablet 1 Active Aspirin Buf,CaCarb-MgC arb-MgO, 81 MG tablet 9 Active buPROPion (Wellbutrin) 75 MG tablet take once tablet daily 8 Active enalapril (Vasotec) 20 MG tablet TAKE 2 TABLET QD 9 Active ergocalciferol (Vitamin D-2) 1.25 MG (43975 UT) capsule 9 Active ezetimibe (Zetia) 10 MG tablet 1 Active hydroCHLOROthi azide (HYDRODiuril) 12.5 MG tablet 1 Active metFORMIN (Glucophage) 500 MG tablet 1 Active niacin 500 MG tablet 1 Active omeprazole OTC (PriLOSEC OTC) 20 MG EC tablet TAKE 1 TABLET DAILY. 5 Active propranolol LA (Inderal LA) 60 MG 24 hr capsule 9 Active Viibryd 20 MG tablet 1 Active Viibryd 10 MG tablet 1 Active polyvinyl alcohol-povido ne PF (HYPOTears) 1.4-0.6 % ophthalmic solution Administer 1-2 drops into both eyes if needed for wound care. Active Ozempic, 0.25 or 0.5 MG/DOSE, 2 MG/3ML solution pen-injector INJECT 0.5 MG SUBCUTANEOUSLY ONCE A WEEK 4 Active atorvastatin (Lipitor) 20 MG tablet 5 Active Active Problems Problem Noted Date Diagnosed Date Abdominal pain 09/16/2023 Pelvic pain 09/16/2023 Anxiety 09/16/2023 C. 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 Hypertension 07/08/2023 Type 2 diabetes mellitus without complications 1 09/08/2022 Obsessive-compulsive disorder, unspecified 06/03 Enterocolitis due to Clostri dium difficile, not specified as recurrent 12/30/2022 GERD (gastroesophageal reflux disease) 3 Obesity 12/30/2022 ADINA (acute kidney injury) 12/16/2022 Calculus of gallbladder with out cholecystitis without obstruction 12/16/2022 Hypo-osmolality and hyponatremia 12/16/2022 Hypocalcemia 12/16/2022 Hypomagnesemia 12/16/2022 Diarrhea 12/15/2022 Other acute kidney failure 12/15/2022 Other bacterial infections of unspecified site 0 12/15/2022 Diabetes mellitus type 2 without retinopathy 06/2019 Cataract, nuclear sclerotic, left eye 12/17/2018 Combined form of senile cataract of right eye Age-related nuclear cataract, bilateral 11/23/19 Macular vitelliform lesion 11/22/2018 Pathologic myopia, 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 Intractable chronic migraine without aura and with status migrainosus 06/21/2015 Migraines 05/08/2014 Encounters Date Type Department Care Team Description 10/14/2024 9:30 AM EDT Office Visit [facility] [address] [place] [phone] Alexandre Ramos MD Diabetes mellitus type 2 without retinopathy (CMS/HCC) (Primary Dx); Pseudophakia of both eyes 10/14/2024 Travel from Last 3 Months Family History Medical History Relation Name Comments Cancer Brother 1 Jerardo Lopez Other cancer Brother 1 Jerardo Loepz Cancer Brother 2 Alexandre Lopez Cancer Brother 3 Anshul Lopez Cancer Father WK Edmundo Cardiac disorder Father WK Edmundo Hyperlipidemia Father WK Ed[place] Hypertension Father WK Edmundo Other cancer Father WK [place] Stroke Father WK [place] Cancer Mother Carolin B Ed[place]undo Hypertension Mother Carolin B Ed[place]undo Obesity Mother Carolin B Ed[place]undo Other cancer Mother Carol[place] B [place] Stroke Mother Carol[place] B [place] Diabetes Other 1 Meniere's disease Other 2 Cancer Sister Annabelle Mcclure Other cancer Sister Annabelle Mcclure Relation Name Status Comments Brother 1 Jerardo Edmundo Brother 2 Alexandre Lopez Alive Brother 3 Anshul Lopez Alive Father WK [place] Mother Carolin B Ed[place]undo Other 1 Other 2 Sister Annabelle Mcclure Social History Tobacco Use Types Packs/Day Years Used Date Smoking Tobacco: Former Cigarettes 1 15 Q uit: 09/12/2004 Passive Smoke Exposure: Past Smokeless Tobacco: Never Comments:haven't smoked in 2 0 years Alcohol Use Standard Drinks/Week Comments No 0 (1 standard drink = 0.6 oz pur e alcohol) Comments Unknown Sex and Gender Information Value Date Recorded Sex Assigned at Not on file Legal Sex Female 7:40 PM EDT Gender Identity Not on file Sexual Orientation Not on file Last Filed Vital Signs Vital Sign Reading Time Taken Comments Blood Pressure 137/83 10/23/2017 8:47 AM EDT Pulse 60 10/23/2017 8:47 AM EDT Temperature 36.7 C (98 F) 10/23/2017 8:47 AM EDT Respiratory Rate - - Oxygen Saturation - - Inhaled Oxygen Concentration - - Weight 96.2 kg (212 lb 1.3 oz) 10/23/2017 8:47 A M EDT Height 160 cm (5' 3 ) 10/23/2017 8:47 AM EDT Body Mass Index 37.57 10/23/2017 8:47 AM EDT Plan of Treatment Upcoming Encounters Date Type Department Care Team (Late st Contact Info) Description 10/27/2025 9:30 AM EDT Office Visit [facility] [address] [place] [address] Alexandre Ramos MD [address] [phone] Health Maintenance Due Date Last Done Comments Dental Oral Exam 1960 Dental X-Ray: Full Mouth 1958 [facility]-Bone Density Scan 1958 [facility]-Depression Screening 1960 [facility]-Diabetes: Hemoglobin A1C 1958 [facility]-Hepatitis C Screening 1958 [facility]-Medicare Annual Wellness (AWV) 1958 [facility]-Infant/Child/Adol SDOH Screenings 1958 Diabetes: Dental Exam 1968 [facility]- SDOH Screenings 1976 [facility]-Adult SDOH Screenings 1976 [facility]-DTaP,Tdap,and Td Vaccines (1 - Tdap) 1977 Dental Prophylaxis 03/04/1994 09/03/1993 Dental X-Ray: Bitewings 07/05/1994 07/04/1993 CT Colonography 2003 Colonoscopy 2003 FIT-DNA 2003 FIT 2003 FOBT 2003 Sigmoidoscopy 2003 [facility]-Colorectal Cancer Screening 2003 [facility]-Breast Cancer Screening 2008 [facility]-Zoster Vaccines (1 of 2) 2008 [facility]-Pneumococcal Vaccine: 50+ Years (2 of 2 - PCV) 04/26/2020 04/26/2019 [id number] Vaccine (2023- season) 2024 05/05/2024, 05/06/2022, 12/24/2021, Additional history exists [facility]-RSV Vaccine: 60+ Years or (1 - 1-dose 75+ series) 2033 [facility]-Cervical Cancer Screening Discontinued [facility]-HPV/Cotest Discontinued 02/09/1996, 06/05, 02/20/1993 [facility]-Pap Smear Discontinued 02/09/1996, 06/05, 02/20/1993 [facility]-Influenza Vaccine Completed 05/05/2024 , 05/02/2023, 05/06/2022, Additional history exists [facility]-Obesity Intervention Completed 10/14/2024, 09/03 HPV Vaccines Aged Out No longer eligi ble based on patient's age to complete this topic [facility]-HIB Vaccines Aged Out No longer e ligible based on patient's age to complete this topic [facility]-Hepatitis A Vaccines Aged Out No longer eligible based on patient's age to complete this topic [facility]-IPV Vaccines Aged Out No longer e ligible based on patient's age to complete this topic [facility]-Rotavirus Vaccines Aged Out No lo nger eligible based on patient's age to complete this topic Procedures Procedure Name Priority Date/Time Associated Diagnosis Comments CYTO DATA CONVERSION Routine 02/09/1996 12:00 AM EDT PROPHYLAXIS - ADULT Routine 09/03/1993 1 2:00 AM EST BITEWINGS - 4 RADIOGRAPHIC IMAGES Routine 07/04/1993 12:00 AM EST from Last 3 Months or Most Recently Relevant to Health Maintenance Results * Cytology (02/09/1996 12:00 AM EDT) 02/09/1996 02/10/1996 Narrative SUNQUEST - 02/17/1996 12:00 AM EDT [facility] MR #: [id number] [facility] [address] [place], [place] [address] 1960 (Age: 35) FW Collect Date: 02/09/1996 00:00 Receipt Date: 02/10/1996 00:00 Page 1 DEPARTMENT OF PATHOLOGY AND LABORATORY MEDICINE CYTOPATHOLOGY REPORT Email: [email or web address] [email or web address] * Converted Case * This report may not match the original report format ATTENDING MD/Practitioner: Luisa Maldonado MD Service: [facility] [place]: Reported: 02/17/1996 00:00 Collected: 02/09/1996 00:00 INTERPRETATION CERVICAL SCRAPE/ENDOCERVICAL BRUSH WITHIN NORMAL LIMITS. SATISFACTORY FOR INTERPRETATION. Electronically Signed Out OBED Foster (ASCP) Annabelle Faria MD Cervical cytology is a screening test primarily for squamous cancers and precursors and has associated false negative and positive results. New technologies such as liquid based sampling may decrease but will not eliminate all false negative results. Regular screening and follow-up of unexplained clinical signs and symptoms are recommended to minimize false negative results. Please see the ASCCP website (www.asccp.org) for followup recommendations. If HPV testing was requested, correlation with the results is suggested (please call Microbiology at [phone] for results). CLINICAL INFORMATION: Menstrual History: {Not Provided} Date of Last Menstrual Period: {Not Provided} SPECIMEN DESCRIPTION: A: CERVICAL/VAGINAL SMEAR, PAP ICD: F: {Not Entered} SNOMED CODES: 1; R8X045 [id number] In cases where a pathologist has signed out the report, the service has been rendered in part by a resident. The signing pathologist has performed and is responsible for the reported pathologic evaluation. us Historical Provider LAB PATHOLOGY ORDERABLES Final Result SUNQUEST from Last 3 Months or Most Recently Relevant to Health Maintenance Additional Health Concerns Infection Onset Date Last Indicated C. difficile 09/16/2023 09/16/2023 Insurance [employer] MED[facility] Care Teams Fermenting Cellars Supervisor Relationship Specialty Start Date End Date Anshul Pham MD [address] [place] [id number] PCP - General 12/14/20
[2025-01-10 07:48] LABS: Albumin Level 4.2 g/dl (3.5-5.0)
[2025-01-10 07:50] LABS: Alanine Aminotransferase 23 U/L (12-78); Alkaline Phosphatase 93 U/L (38-126); Aspartate Amino Transferase 34 U/L (14-36); Bilirubin,Direct 0.3 mg/dl (0.0-0.4); Bilirubin,Indirect 0.5 mg/dL (0.0-0.9); Bilirubin,Total 0.8 mg/dl (0.2-1.3); Bilirubin,Unconjugated 0.5 mg/dL (0.0-1.1); Total Protein,Serum 7.1 g/dl (6.3-8.2); Triglycerides 100 mg/dl (30-150); VLDL Cholesterol 20 mg/dL (0-40)
[2025-01-10 07:51] LABS: Chol/HDL Ratio 2.6 (1-3.5); Cholesterol 186 mg/dl (140-200); HDL Cholesterol 72 mg/dl (40-60)
[2025-01-10 08:02] LABS: Direct LDL Cholesterol 81.58 mg/dL (100-129)
== END 2025-01-10 23:59 | disposition home or self-care (01) ==
LOC: LAB 07:06
PROVIDERS: PCP Family Medicine; Visit Provider Internal Medicine
DX: E78.2 Mixed hyperlipidemia (principal)
CPT/HCPCS: 36415; 80061; 80076

== ENCOUNTER 2025-01-27 08:43 | Outpatient (CLI) | payer MEDICARE, SELFPAY ==
[2025-01-27 18:36] LABS: Creatinine,Urine Random 28 mg/dL (Not Estab.)
[2025-01-27 18:41] LABS: Microalbumin < 6.000 mg/L (0-16.7)
[2025-01-27 18:50] LABS: Alanine Aminotransferase 20 U/L (12-78); Albumin Level 4.4 g/dl (3.5-5.0); Albumin/Globulin Ratio 1.5 (1.1-1.8); Alkaline Phosphatase 113 U/L (38-126); Anion Gap 16.1 mEq/L (5-15); Aspartate Amino Transferase 30 U/L (14-36); Bilirubin,Total 0.7 mg/dl (0.2-1.3); Blood Urea Nitrogen 20 mg/dl (7-17); Calcium 10.5 mg/dl (8.4-10.2); Carbon Dioxide 31 mmol/L (22.0-30.0); Chloride 96 mmol/L (98-107); Estimated Glomerular Filt Rate 50 ml/min (>60); GFR (African American) 60 ML/MIN (>60); Glucose 95 mg/dl (74-100); Potassium 5.1 mmoL/L (3.5-5.1); Sodium 138 mmol/L (136-145); Total Protein,Serum 7.4 g/dl (6.3-8.2)
[2025-01-27 19:01] LABS: Hemoglobin A1C 7.1 % (4.0-6.0)
--- OUTSIDE RECORDS SUMMARY | 2025-01-28 08:20 | XMS_ITS | Clinical Summary ---
Author Organization Healthcare Address [address] [place] [address] Care Team Providers Care Financial Analysis Advisor Name Role Phone Anshul Pham MD Primary Care Provider [phone] Allergies Active Allergy Reactions Criticality Noted Date [...] 9 Active ergocalciferol (Vitamin D-2) 1.25 MG (68799 UT) capsule 9 Active ezetimibe (Zetia) 10 [...] and with status migrainosus 06/21/2015 Migraines 05/08/2014 Family History Medical History Relation Name Comments Cancer Brother 1 Jerardo Lopez Other cancer Brother 1 Jerardo Lopez Cancer Brother 2 Alexandre oLpez Cancer Brother 3 Anshul Lopez Cancer Father [...] Meniere's disease Other 2 Cancer Sister Annabelle Mcculre Other cancer Sister Annabelle Mcclure Relation Name Status Comments Brother 1 Jerardo Lopez Brother 2 Alexandre Lopez Alive Brother 3 [...] Description 10/27/2025 9:30 AM EDT Office Visit [facility] [address] [place] [address] Alexandre Ramos MD [address] [place] [address] Health Maintenance Due Date Last Done Comments Dental Oral Exam 1960 Dental X-Ray: Full Mouth 1958 [facility]-Bone Density Scan 1958 [facility]-Depression Screening 1958 [facility]-Diabetes: Hemoglobin A1C 1958 [facility]-Hepatitis C Screening 1958 [facility]-Medicare Annual Wellness (AWV) 1958 [facility]-Infant/Child/Adol SDOH Screenings 1958 Diabetes: Dental Exam 1968 [...] (2 of 2 - PCV) 04/26/2020 04/26/2019 [id number] Vaccine ( season) 2024 05/05/2024, 05/06/2022, 12/24/2021, Additional history [...] Narrative SUNQUEST - 02/17/1996 12:00 AM EDT [facility] MR #: [id number] [facility] [address] [place], [place] [address] 1960 (Age: 35) FW Collect Date: 02/09/1996 00:00 Receipt Date: 02/10/1996 00:00 Page 1 DEPARTMENT OF PATHOLOGY AND LABORATORY MEDICINE CYTOPATHOLOGY REPORT Email: [phone] * Converted Case * This report may not match the original report format ATTENDING MD/Practitioner: Luisa Maldonado MD Service: [facility] [place] Location: Reported: 02/17/1996 00:00 Collected: 02/09/1996 00:00 [...] results is suggested (please call Microbiology at [phone] for results). CLINICAL INFORMATION: Menstrual History: {Not Provided} Date of Last Menstrual Period: {Not Provided} SPECIMEN DESCRIPTION: A: CERVICAL/VAGINAL SMEAR, PAP ICD: F: {Not Entered} SNOMED CODES: 1; A2S090 [id number] In cases where a pathologist has signed out the report, the service has been rendered in part by a resident. The signing pathologist has performed and is responsible for the reported pathologic evaluation. Historical Provider LAB PATHOLOGY ORDERABLES Final Result SUNQUEST from Last 3 Months or Most Recently Relevant to Health Maintenance Additional Health Concerns Infection Onset Date Last Indicated C. difficile 09/16/2023 09/16/2023 Insurance [employer] Care Teams Financial Analysis Advisor Relationship Specialty Start Date End Date Anshul Pham MD [address] [place] [address] PCP - General 12/14/20
--- OUTSIDE RECORDS SUMMARY | 2025-01-28 08:20 | XMS_ITS ---
Author Organization Unknown Plan of Treatment Description Planned Activity Planned Timing - Telephone encounter - Patient Care team information Name Category Status Period Participants - - Proposed period not known -
== END 2025-01-27 23:59 | disposition home or self-care (01) ==
LOC: LAB 01-28 08:18
PROVIDERS: PCP Family Medicine; Visit Provider Family Medicine
DX: E11.69 Type 2 diabetes mellitus with other specified complication (principal); E66.9 Obesity, unspecified
CPT/HCPCS: 80053; 82043; 82570; 83036

== ENCOUNTER 2025-07-31 09:56 | Outpatient (CLI) | payer MEDICARE, SELFPAY ==
[2025-07-31 15:25] LABS: Hematocrit 40.0 % (37.0-47.0); Hemoglobin 12.7 g/dL (12.2-16.2); Immature Granulocytes % 0.2 %; Mean Corpuscular HGB Conc 31.8 g/dL (31.8-35.4); Mean Corpuscular Hemoglobin 29.1 pg (27.0-31.2); Mean Corpuscular Volume 91.7 fl (81-99); Nucleated Red Blood Cells % 0 %; Platelet Count 298 K/mm3 (142-424); Red Blood Count 4.36 M/mm3 (4.20-5.40); Red Cell Distribution Width-SD 44.3 fL; White Blood Count 8.4 K/mm3 (4.8-10.8)
[2025-07-31 16:13] LABS: Hemoglobin A1C 5.8 % (4.0-6.0)
[2025-07-31 16:17] LABS: Albumin Level 4.2 g/dl (3.5-5.0); Chloride 102 mmol/L (98-107); Potassium 4.8 mmoL/L (3.5-5.1); Sodium 137 mmol/L (136-145)
[2025-07-31 16:19] LABS: Blood Urea Nitrogen 18 mg/dl (7-17); Creatinine,Serum 1.00 mg/dl (0.52-1.04); Estimated Glomerular Filt Rate 55 ml/min (>60); GFR (African American) 67 ML/MIN (>60)
[2025-07-31 16:20] LABS: Alanine Aminotransferase 20 U/L (12-78); Albumin/Globulin Ratio 1.5 (1.1-1.8); Alkaline Phosphatase 104 U/L (38-126); Anion Gap 10.8 mEq/L (5-15); Aspartate Amino Transferase 27 U/L (14-36); Bilirubin,Total 0.3 mg/dl (0.2-1.3); Calcium 10.2 mg/dl (8.4-10.2); Carbon Dioxide 29 mmol/L (22.0-30.0); Globulin 2.8 g/dL (1.3-3.2); Glucose 94 mg/dl (74-100); Total Protein,Serum 7.0 g/dl (6.3-8.2)
--- OUTSIDE RECORDS SUMMARY | 2025-08-01 10:30 | XMS_ITS | Clinical Summary ---
Author Organization Healthcare Address [address] [place] [address] Care Team Providers Care General Utility Maintenance Repairer Name Role Phone Anshul Pham MD Primary Care Provider [phone] Allergies Active Allergy Reactions Criticality Noted Date [...] 9 Active ergocalciferol (Vitamin D-2) 1.25 MG (04112 UT) capsule 9 Active ezetimibe (Zetia) 10 [...] Description 10/27/2025 9:30 AM EDT Office Visit [facility] [address] [place] [address] Alexandre Ramos MD [address] [place] [phone] Health Maintenance Due Date Last Done [...] (2 of 2 - PCV) 04/26/2020 04/26/2019 [id number] Vaccine ( season) 2025 05/05/2024, 05/06/2022, 12/24/2021, [...] Narrative SUNQUEST - 02/17/1996 12:00 AM EDT [facility] MR #: [id number] [place] [address] [place], [place] [address] 1960 (Age: 35) FW Collect Date: 02/09/1996 00:00 Receipt Date: 02/10/1996 00:00 Page 1 DEPARTMENT OF PATHOLOGY AND LABORATORY MEDICINE CYTOPATHOLOGY REPORT Email: [email or web address] * Converted Case * This report may not match the original report format ATTENDING MD/Practitioner: Luisa Maldonado MD Service: [facility] Location: Reported: 02/17/1996 00:00 Collected: 02/09/1996 00:00 [...] results is suggested (please call Microbiology at [phone] for results). CLINICAL INFORMATION: Menstrual History: {Not Provided} Date of Last Menstrual Period: {Not Provided} SPECIMEN DESCRIPTION: A: CERVICAL/VAGINAL SMEAR, PAP ICD: F: {Not Entered} SNOMED CODES: 1; [id number] In cases where a pathologist has signed [...] C. difficile 09/16/2023 09/16/2023 Insurance [employer] MEDICARE [facility] Care Teams General Utility Maintenance Repairer Relationship Specialty Start Date End Date Anshul Pham MD [address] [place] [address] PCP - General 12/14/20
== END 2025-07-31 23:59 | disposition home or self-care (01) ==
LOC: LAB.DROPOF 08-01 10:05
PROVIDERS: PCP Student in an Organized Health Care Education/Training Program; Visit Provider Student in an Organized Health Care Education/Training Program
DX: E11.69 Type 2 diabetes mellitus with other specified complication (principal); E66.9 Obesity, unspecified; E78.2 Mixed hyperlipidemia; I10 Essential (primary) hypertension
CPT/HCPCS: 80053; 83036; 85025

== ENCOUNTER 2025-08-01 09:43 | Outpatient (CLI) | payer MEDICARE, SELFPAY ==
--- OUTSIDE RECORDS SUMMARY | 2025-08-01 09:46 | XMS_ITS | Clinical Summary ---
Author Organization Healthcare Address [address] [place] [address] Care Team Providers Care Food Assembler Kitchen Name Role Phone Anshul Pham MD Primary Care Provider [phone] Allergies Active Allergy Reactions Criticality Noted Date [...] not know rxn details,Hives Medium 06/28/2014 Medications Flaxseed-Jnue Prim-Bilberry 250-125-10 MG capsule 4 Active amLODIPine (Norvasc) 2.5 MG tablet 1 Active ARIPiprazole (Abilify) 5 MG tablet 1 Active Aspirin Buf,CaCarb-MgC arb-MgO, 81 MG tablet 9 Active buPROPion (Wellbutrin) 75 MG tablet take once tablet daily 8 Active enalapril (Vasotec) 20 MG tablet TAKE 2 TABLET QD 9 Active ergocalciferol (Vitamin D-2) 1.25 MG (48364 UT) capsule 9 Active ezetimibe (Zetia) 10 [...] Active Problems Problem Noted Date Diagnosed Date Anxiety 09/16/2023 C. 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 Intractable chronic migraine without aura and with status migrainosus 06/21/2015 Migraines 05/08/2014 Resolved Problems Problem Noted Date Diagnosed Date Resolved Date Abdominal pain 09/16/2023 04/23/2025 Pelvic pain 09/16/2023 04/23/2025 ADINA (acute kidney injury) 12/16/2022 Diarrhea 12/15/2022 04/23/2025 Age-related nuclear cataract, 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 04/23/2025 Family History Medical History Relation Name Comments Cancer Brother 1 Jerardo Lopez Other cancer Brother 1 Jerardo Lopez Cancer Brother 2 Alexandre Lopez Cancer Brother [...] Description 10/27/2025 9:30 AM EDT Office Visit [facility] [address] [place] [address] Alexandre Ramos MD [address] [place] [phone] Health Maintenance Due Date Last Done Comments [facility]-Bone Density Scan 1958 [facility]-Depression Screening 1958 [facility]-Diabetes: Hemoglobin A1C 1958 [facility]-Hepatitis C Screening 1958 [facility]-Medicare Annual Wellness (AWV) 1958 [facility]-Infant/Child/Adol SDOH Screenings 1958 Diabetes: Dental Exam 1968 [facility]- SDOH Screenings 1976 [facility]-Adult SDOH Screenings 1976 [facility]-DTaP,Tdap,and Td Vaccines (1 - Tdap) 1977 CT Colonography 2003 Colonoscopy 2003 FIT-DNA 2003 FIT 2003 FOBT 2003 Sigmoidoscopy 2003 [facility]-Colorectal Cancer Screening 2003 [facility]-Breast Cancer Screening 2008 [facility]-Zoster Vaccines (1 of 2) 2008 [facility]-Pneumococcal Vaccine: 50+ Years (2 of 2 - PCV) 04/26/2020 04/26/2019 [id number] Vaccine ( season) 2025 05/05/2024, 05/06/2022, 12/24/2021, Additional history exists [facility]-Influenza Vaccine (#1) 04/03/202505/05, 05/02/2023, 05/06/2022, Additional history exists [facility]-RSV Vaccine: 60+ Years or (1 - 1-dose 75+ series) 2033 [facility]-Cervical Cancer Screening Discontinued [facility]-HPV/Cotest Discontinued 02/09/1996, 06/05, 02/20/1993 [facility]-Pap Smear Discontinued 02/09/1996, 06/05, 02/20/1993 [facility]-Obesity Intervention Completed 10/14/2024, 09/03 HPV Vaccines (No Doses Required) Completed [facility]-HIB Vaccines Aged Out No longer e [...] DATA CONVERSION Routine 02/09/1996 12:00 AM EDT from Last 3 Months or Most Recently Relevant to Health Maintenance Results * Cytology (02/09/1996 12:00 AM EDT) 02/09/1996 02/10/1996 Narrative SUNQUEST - 02/17/1996 12:00 AM EDT [facility] MR #: [id number] [facility] [address] [place], [place] [address] 1960 (Age: 35) FW Collect Date: 02/09/1996 00:00 Receipt Date: 02/10/1996 00:00 Page 1 DEPARTMENT OF PATHOLOGY AND LABORATORY MEDICINE CYTOPATHOLOGY REPORT Email: [email or web address] * Converted Case * This report may not match the original report format ATTENDING MD/Practitioner: Luisa Maldonado MD Service: [facility] [place] [place] Location: Reported: 02/17/1996 00:00 Collected: 02/09/1996 00:00 [...] results is suggested (please call Microbiology at [phone] for results). CLINICAL INFORMATION: Menstrual History: {Not Provided} Date of Last Menstrual Period: {Not Provided} SPECIMEN DESCRIPTION: A: CERVICAL/VAGINAL SMEAR, PAP ICD: F: {Not Entered} SNOMED CODES: 1; O6Z141 U46856 O11125 In cases where a pathologist has signed out the report, the service has been rendered in part by a resident. The signing pathologist has performed and is responsible for the reported pathologic evaluation. Historical Provider LAB PATHOLOGY ORDERABLES Fin al Result SUNQUEST from Last 3 Months or Most Recently Relevant to Health Maintenance Additional Health Concerns Infection Onset Date Last Indicated C. difficile 09/16/2023 09/16/2023 Insurance [employer] MEDICARE [facility] Care Teams Food Assembler Kitchen Relationship Specialty Start Date End Date Anshul Pham MD [address] [place] [address] PCP - General 12/14/20
--- NOTE | 2025-08-01 09:48 | XR_ITS ---
FINAL REPORT CLINICAL HISTORY: right hip pain FINDINGS: RIGHT HIP 3 views of the right hip demonstrate no acute fracture or dislocation. The joint spaces appear normal. The visualized bony structures are well aligned. No soft tissue abnormality is seen. IMPRESSION: No acute bony abnormality. Reviewed, Interpreted and Dictated by Marifer Torres MD Transcribed by Jeannie Cerrato Authenticated and [facility]
== END 2025-08-01 23:59 | disposition home or self-care (01) ==
LOC: RAD 09:44
PROVIDERS: PCP Student in an Organized Health Care Education/Training Program; Visit Provider Student in an Organized Health Care Education/Training Program
DX: M25.551 Pain in right hip (principal)
CPT/HCPCS: 73502